=== PATIENT | male | born 1955 | race Caucasian/White ===

== ENCOUNTER 2020-09-28 11:32 | Inpatient (IN) | payer MEDICARE, OTHER ==
[~2020-09-28] VITALS: Ht 177.8 cm; Wt 114.8 kg
--- NOTE | 2020-09-28 11:50 | NUR ---
ROSALES FROM HOME, EXPOSED TO FAMILY + COVID, C/O FEELING SICK X3 DAYS. iv access started. blood draw done sent to lab.
--- NOTE | 2020-09-28 11:51 | NUR ---
placed pt on non rebreather mask 10l, pt sating at 94%. made aware.
[2020-09-28] MEDS ORDERED: CEFTRIAXONE 1GM BAG (ER ONLY) 50 ML IV ONE ×2 (12:28→12:30)
[2020-09-28] MEDS ORDERED: DEXAMETHASONE SOD PHOSPHATE 10 MG/ML VIAL ONE (12:28)
[2020-09-28] MEDS ORDERED: DEXAMETHASONE SOD PHOSPHATE 10 MG/ML VIAL IV ONE (12:30)
[2020-09-28] MEDS ORDERED: AZITHROMYCIN 500 MG in IV D5W 250 ML IV ONE (12:30)
[2020-09-28] MEDS ORDERED: IV NS 0.9% 500 ML BAG IV ONE (12:30)
[2020-09-28 12:43] LABS: BASOPHILS % (AUTO) 0.4 % (0.0-2.0); EOSINOPHILS % (AUTO) 0.5 % (0.0-6.0); HEMATOCRIT 41 % (39-51); HEMOGLOBIN 13.3 g/dL (13.5-17.5); LYMPHOCYTES # (AUTO) 0.5 /CMM (0.8-4.8); LYMPHOCYTES % (AUTO) 16.4 % (20.0-44.0); MEAN CORPUSCULAR HGB CONC 33 g/dl (31.0-36.0); MEAN CORPUSCULAR VOLUME 88 fL (80-96); MONOCYTES # (AUTO) 0.4 /CMM (0.1-1.30); MONOCYTES % (AUTO) 13.1 % (2.0-12.0); NEUTROPHILS # (AUTO) 2.1 /CMM (1.8-8.9); NEUTROPHILS % (AUTO) 69.6 % (43.0-81.0); PLATELET COUNT (AUTO) 157 /CMM (150-450); RED BLOOD CELL COUNT(AUTO) 4.64 MIL/uL (4.5-6.0)
[2020-09-28] MEDS ORDERED: METF-442 PO (12:48)
[2020-09-28] MEDS ORDERED: CARV12.52 PO (12:48)
[2020-09-28] MEDS ORDERED: LOSA50TA39 PO (12:48)
[2020-09-28] MEDS ORDERED: ASPI-869 PO (12:48)
[2020-09-28] MEDS ORDERED: CLOP75TA15 PO (12:48)
[2020-09-28] MEDS ORDERED: DAPA5TAB PO (12:48)
[2020-09-28] MEDS ORDERED: QUET25TA PO (12:48)
[2020-09-28] MEDS ORDERED: EZET10TA32 PO (12:48)
[2020-09-28] MEDS ORDERED: GABA-532 PO (12:48)
[2020-09-28] MEDS ORDERED: PANT40TA49 PO (12:48)
[2020-09-28] MEDS ORDERED: FURO40TA5 PO (12:48)
[2020-09-28] MEDS ORDERED: QUIN40TA14 PO (12:48)
--- NOTE | 2020-09-28 12:54 | NUR ---
covid swab done sent to lab
[2020-09-28 12:55] LABS: CALCIUM, SERUM 8.8 mg/dL (8.5-10.1); CARBON DIOXIDE 30 mmol/L (21-32); CHLORIDE 102 mmol/L (98-107); CREATININE 1.1 mg/dL (0.6-1.3); GLUCOSE 200 mg/dL (74-106); POTASSIUM 4.4 mmol/L (3.5-5.1); SODIUM SERUM 140 mmol/L (136-145); UREA NITROGEN, BLOOD 25 mg/dL (7-18)
--- NOTE | 2020-09-28 13:02 | NUR ---
xray by bedside
[2020-09-28 13:11] LABS: ALANINE AMINOTRANSFERASE 17 U/L (12-78); ALBUMIN 3.2 g/dL (3.4-5.0); ALKALINE PHOSPHATASE 79 U/L (46-116); ASPARTATE AMINOTRANSFERASE 30 U/L (15-37); B-TYPE NATRIURETIC PEPTIDE 320 PG/ML (0-125); BILIRUBIN,DIRECT 0.4 mg/dL (0.0-0.2); BILIRUBIN,TOTAL 1.1 mg/dL (0.2-1.0); TOTAL PROTEIN, SERUM 7.7 g/dL (6.4-8.2)
[2020-09-28 13:22] LABS: D-DIMER 0.73 mg/L(FEU (0.17-0.50)
--- NOTE | 2020-09-28 14:21 | NUR ---
urine collected sent to lab
--- NOTE | 2020-09-28 14:35 | NUR ---
COVID POSITIVE PER LAB
[2020-09-28 14:36] LABS: BILIRUBIN,URINE SMALL (NEGATIVE); BLOOD, URINE Negative Ery/uL (NEGATIVE); COLOR,URINE YELLOW (YELLOW); LEUKOCYTE ESTERASE ,URINE Negative (NEGATIVE); NITRITE, URINE Negative (NEGATIVE); PH,URINE 5.5 (5.0-8.0); PROTEIN,URINE 100 mg/dl (NEGATIVE); UGLUCOSE Negative (NEGATIVE)
[2020-09-28 14:37] LABS: RBC,URINE 0-2 /HPF (0-2); WBC,URINE 0-2 /HPF (0-3)
[2020-09-28 14:38] LABS: BACTERIA,URINE Few /HPF (None Seen); HYALINE CASTS, URINE Rare /LPF (None Seen); SQUAMOUS EPITHELIAL CELL,UR Rare /HPF (None Seen)
--- NOTE | 2020-09-28 14:47 | NUR ---
covid pcr and influenza swab done sent to lab
--- NOTE | 2020-09-28 14:49 | NUR ---
called vineyard supervisor for bed assiggment
[2020-09-28 15:14] LABS: C-REACTIVE PROTEIN 13.6 mg/dL (0.0-0.9)
--- NOTE | 2020-09-28 21:08 | NUR ---
REPORT GIVEN TO NEGRO LECHUGA FOR CORAL.
--- NOTE | 2020-09-28 21:35 | NUR ---
RN OPENING NOTES RECEIVED PT VIA GIBRAN FROM ER. ISOLATION PRECAUTIONS IN PLACE FOR RAPID COVID POSITIVE RESULT. PT IS CURRENTLY A/O X4. SAMI/MOSOTHO SPEAKING, UNDERSTANDS CHINESE. ABLE TO MAKE NEEDS KNOWN. PT IS ON 10L OF O2 VIA SIMPLE MASK SATURATING WELL AT 95%. PT IS NOT EXPERIENCING SOB OR RESP DISTRESS AT THIS TIME. TELE MONITORING IN PLACE. BREATHING IS EVEN. PT SHOWS NSR HEART RATE OF 83. IV SITE RIGHT AC #18 SL, FLUSHED. PT DENIES PAIN. PT HAS BLISTERS WITH AT HOME BANDAGES ON BILATERAL LEGS. PT BELONGINGS AT BEDSIDE. SAFETY MEASURES IN PLACE. HOB ELEVATED. ID BAND ON. SIDE RAILS UP X2. BED LOCKED IN LOWEST POSITION WITH BED ALARM ON. CALL LIGHT WITHIN REACH WILL CONTINUE TO MONITOR.
--- NOTE | 2020-09-28 21:38 | NUR ---
TAKEN UP TO ASSIGNED ROOM FOR CORAL.
[2020-09-28] MEDS ORDERED: ONDANSETRON HCL/PF 4 MG/2 ML VIAL IVP PRN (22:00)
[2020-09-28] MEDS ORDERED: DEXTROSE 50%-WATER 50 ML DISP.SYRIN IV PRN (22:00)
[2020-09-28] MEDS ORDERED: ACETAMINOPHEN 325 MG TABLET PO PRN (22:00)
[2020-09-28] MEDS ORDERED: Z GUARD REMEDY 2 OZ OINT TP PRN (22:00)
[2020-09-28] MEDS: ENOXAPARIN SODIUM 40 MG/0.4 ML DISP.SYRIN SQ SCH (23:36)
[2020-09-28] MEDS: BLOOD SUGAR DIAGNOSTIC 1 EACH STRIP IN SCH (23:37)
[2020-09-28 23:46] VITALS: BP 133/73
[2020-09-29] VITALS: BP 136/75
[2020-09-29] MEDS: INSULIN REGULAR, HUMAN 100 UNIT/ML 3 ML VIAL SQ PRN ×5 (00:14→21:27)
[2020-09-29 04:00] VITALS: BP 151/77
[2020-09-29 05:36] LABS: BASOPHILS % (AUTO) 0.1 % (0.0-2.0); HEMATOCRIT 40 % (39-51); HEMOGLOBIN 13.1 g/dL (13.5-17.5); LYMPHOCYTES # (AUTO) 0.3 /CMM (0.8-4.8); LYMPHOCYTES % (AUTO) 9.7 % (20.0-44.0); MEAN CORPUSCULAR HGB CONC 33 g/dl (31.0-36.0); MEAN CORPUSCULAR VOLUME 87 fL (80-96); MONOCYTES # (AUTO) 0.4 /CMM (0.1-1.30); MONOCYTES % (AUTO) 13.4 % (2.0-12.0); NEUTROPHILS # (AUTO) 2.2 /CMM (1.8-8.9); NEUTROPHILS % (AUTO) 76.8 % (43.0-81.0); PLATELET COUNT (AUTO) 159 /CMM (150-450); RED BLOOD CELL COUNT(AUTO) 4.56 MIL/uL (4.5-6.0); WHITE BLOOD COUNT (AUTO) 2.9 K/uL (4.3-11.0)
[2020-09-29 06:16] LABS: ALBUMIN 2.8 g/dL (3.4-5.0); BILIRUBIN,TOTAL 0.9 mg/dL (0.2-1.0); CALCIUM, SERUM 8.4 mg/dL (8.5-10.1); CREATININE 0.8 mg/dL (0.6-1.3); MAGNESIUM 1.8 mg/dL (1.8-2.4); PHOSPHORUS 3.3 mg/dL (2.5-4.9); POTASSIUM 4.7 mmol/L (3.5-5.1); TOTAL PROTEIN, SERUM 7.1 g/dL (6.4-8.2)
[2020-09-29 06:25] LABS: THYROID STIMULATING HORMONE 0.285 uIU/mL (0.358-3.74)
--- NOTE | 2020-09-29 07:15 | NUR ---
RN CLOSING NOTES PATIENT REMAINS IN BED. ON O2 VIA SIMPLE MASK AT 10 LPM. NO RESPIRATORY DISTRESS NOTED,KEPT HOB ELEVATED. DENIES ANY SOB DENIES PAIN.TELE MONITOR SHOWS SINUS RHYTHM HR 70S. RIGHT AC IV PATENT AND INTACT, NO SIGNS OF INFILTRATION. ALL NEEDS ATTENDED. ALL SAFETY MEASURES IMPLEMENTED PER PROTOCOL, BED LOCKED IN LOWEST POSITION SIDE RAILS UP X 2. CALL LIGHT WITHIN REACH . WILL ENDORSE TO AM SHIFT NURSE FOR CORAL
[2020-09-29 08:00] VITALS: BP 140/82
[2020-09-29] MEDS: BLOOD SUGAR DIAGNOSTIC 1 EACH STRIP IN SCH ×4 (08:07→21:13)
[2020-09-29] MEDS ORDERED: QUINAPRIL HCL 10 MG TABLET PO SCH (09:00)
[2020-09-29] MEDS: QUETIAPINE FUMARATE 25 MG TABLET PO SCH ×2 (09:03→16:50)
[2020-09-29] MEDS: EZETIMIBE 10 MG TABLET PO SCH (09:03)
[2020-09-29] MEDS: ASPIRIN EC 325 MG TABLET.DR PO SCH (09:03)
[2020-09-29] MEDS: CARVEDILOL 12.5 MG TABLET PO SCH ×2 (09:03→16:50)
[2020-09-29] MEDS: PANTOPRAZOLE 40 MG TABLET.DR PO SCH (09:04)
[2020-09-29] MEDS: CLOPIDOGREL BISULFATE 75 MG TABLET PO SCH (09:04)
[2020-09-29] MEDS: GABAPENTIN 100 MG CAPSULE PO SCH (09:04)
[2020-09-29] MEDS: FUROSEMIDE 40 MG TABLET PO SCH (09:04)
[2020-09-29] MEDS: LOSARTAN POTASSIUM 50 MG TABLET PO SCH (09:04)
[2020-09-29] MEDS: ENOXAPARIN SODIUM 40 MG/0.4 ML DISP.SYRIN SQ SCH ×2 (09:05→21:14)
[2020-09-29 09:20] LABS: LYMPHOCYTES % (MANUAL) 24 % (16-48); MONOCYTES % (MANUAL) 6 % (0-11.0); NEUTROPHILS % (MANUAL) 70 (42-76)
[2020-09-29] MEDS: DEXAMETHASONE SOD PHOSPHATE 4 MG/ML VIAL IV SCH (09:25)
[2020-09-29] MEDS: LISINOPRIL (20MG) 20 MG TABLET PO SCH (09:36)
--- NOTE | 2020-09-29 10:15 | NUR ---
WOUND CARE CONSULT: REVIEWED CHART,NURSING DOCUMENTATION AND PHOTOS WHICH INDICATE LOWER LEG SCARRING/DISCOLORATION AND OPEN BLISTERS, PRESENT ON ADMISSION. RECOMMEND DPM CONSULT. DR VU NOTIFIED OF CONSULT REQUEST. RECOMMENDATIONS MADE FOR SKIN PROTECTION . DISCUSSED WITH NURSING STAFF. MD IN AGREEMENT WITH PLAN OF CARE.
--- NOTE | 2020-09-29 10:56 | NUR ---
tele sap basis administrator: dpm consult received wound tx order from dr. campos. orders acknowledged.
[2020-09-29 12:00] VITALS: BP 135/79
--- NOTE | 2020-09-29 12:00 | NUR ---
tele bone worker: md visit seen by dr. viera. lunch served. instructed to call for assistance. will continue to monitor.
[2020-09-29] MEDS: CEFTRIAXONE 1 G in IV D5W 50 ML IV SCH (13:19)
--- NOTE | 2020-09-29 14:00 | NUR ---
tele public health dietitian: notes resting quietly in bed. will continue to monitor.
[2020-09-29] MEDS: AZITHROMYCIN 500 MG in IV D5W 250 ML IV SCH (14:13)
[2020-09-29 16:00] VITALS: BP 138/81
--- NOTE | 2020-09-29 18:30 | NUR ---
tele pastry baker: notes in bed sounds asleep. no distress noted. call light within reach. will continue to monitor.
--- NOTE | 2020-09-29 19:05 | NUR ---
tele button cutting machine operator: notes report given to joie for continuity of care.
[2020-09-29 20:00] VITALS: BP 129/68
--- NOTE | 2020-09-29 21:06 | NUR ---
speaks [place]inean with some Ecuadorean, states his is next to his bedside also a patient admitted due to COVID-19 infection. Patient lives locally with spouse. Prior to admission, he was ambulatory and independent with adl's. Has no DME or homehealth reported. He plan to return home once discharge. Addendum: 09/29/20 at 2108 by BRITTNI COURTNEY RN Amended: Links added.
[2020-09-30] VITALS: BP 134/60
--- NOTE | 2020-09-30 02:42 | NUR ---
TELE-1/SEAT JOINER CHAINSTITCH PT REFUSING TO WEAR TELE MONITOR.
[2020-09-30 04:00] VITALS: BP 114/68
--- NOTE | 2020-09-30 07:30 | NUR ---
TELE/RN OPENING NOTE Patient resting in bed, A&O x 4, Malawian speaking. No complaints of pain/discomfort at this time. Breathing even and non-labored on 10 L oxygen via mask, no respiratory distress noted. No cardiac distress noted, on tele monitor, reading SR 80s-90s. IV access noted on R AC #18g, patent and intact, and flushing well. Sensation from all peripheral extremities intact. Bed locked to its lowest position, side rails x 2 up, call light in hand. Will continue with current medical management.
[2020-09-30 08:00] VITALS: BP 143/72
[2020-09-30] MEDS ORDERED: LISINOPRIL (20MG) 20 MG TABLET PO SCH (09:00)
[2020-09-30] MEDS: POVIDONE-IODINE OINT 28.4 GM TUBE TP SCH (09:00)
--- NOTE | 2020-09-30 09:00 | NUR ---
TELE/RN NOTE Patient refused wound treatment, explained its risks and benefits.
[2020-09-30] MEDS: BLOOD SUGAR DIAGNOSTIC 1 EACH STRIP IN SCH ×4 (10:43→23:03)
[2020-09-30] MEDS: EZETIMIBE 10 MG TABLET PO SCH (10:44)
[2020-09-30] MEDS: CLOPIDOGREL BISULFATE 75 MG TABLET PO SCH (10:44)
[2020-09-30] MEDS: FUROSEMIDE 40 MG TABLET PO SCH (10:44)
[2020-09-30] MEDS: ASPIRIN EC 325 MG TABLET.DR PO SCH (10:44)
[2020-09-30] MEDS: GABAPENTIN 100 MG CAPSULE PO SCH (10:44)
[2020-09-30] MEDS: PANTOPRAZOLE 40 MG TABLET.DR PO SCH (10:45)
[2020-09-30] MEDS: QUETIAPINE FUMARATE 25 MG TABLET PO SCH ×2 (10:45→17:02)
[2020-09-30] MEDS: CARVEDILOL 12.5 MG TABLET PO SCH ×2 (10:45→17:03)
[2020-09-30] MEDS: LISINOPRIL (20MG) 20 MG TABLET PO SCH (10:46)
[2020-09-30] MEDS: INSULIN REGULAR, HUMAN 100 UNIT/ML 3 ML VIAL SQ PRN ×4 (10:51→23:04)
[2020-09-30] MEDS: ENOXAPARIN SODIUM 40 MG/0.4 ML DISP.SYRIN SQ SCH ×2 (10:51→22:45)
--- NOTE | 2020-09-30 10:52 | NUR ---
TELE/RN NOTE Non-administered regular insulin, patient refused and did not eat breakfast. BS 178
[2020-09-30] MEDS: LOSARTAN POTASSIUM 50 MG TABLET PO SCH (10:53)
[2020-09-30] MEDS: DEXAMETHASONE SOD PHOSPHATE 4 MG/ML VIAL IV SCH (11:31)
[2020-09-30 12:00] VITALS: BP 123/70
[2020-09-30] MEDS: CEFTRIAXONE 1 G in IV D5W 50 ML IV SCH (12:09)
[2020-09-30] MEDS: AZITHROMYCIN 500 MG in IV D5W 250 ML IV SCH (12:54)
[2020-09-30 16:00] VITALS: BP 123/79
[2020-09-30] MEDS ORDERED: REMDESIVIR (CHARGED) 200 MG, *LOADING DOSE 1 EA in IV NS 0.9% 210 ML IV ONE (18:30)
--- NOTE | 2020-09-30 19:00 | NUR ---
TELE/RN NOTE Called pharmacy to bring up patient's remdesivir. Per pharmacy, they will bring it up soon. Will endorse to wallpaperer nurse.
--- NOTE | 2020-09-30 19:30 | NUR ---
TELE/RN CLOSING NOTE Patient resting in bed, A&O x 4. All needs met and attended to. No complaints of pain/discomfort at this time. Breathing even and non-labored on 10 L oxygen via face mask, no respiratory distress noted. No cardiac distress noted, on tele monitor, reading SR 80s-90s. IV access noted on R AC #18, patent and intact, and flushing well. Sensation from all peripheral extremities intact. Fall precautions maintained. Will endorse to slot shift supervisor nurse.
--- NOTE | 2020-09-30 19:50 | NUR ---
ERP ANALYST OPENING NOTES PATIENT AWAKE AND SITTING UP IN BED. A/OX4. PRIMARY LANGUAGE GREENLANDIC. ON 10L MASK; NO S/S OF ACUTE RESPIRATORY DISTRESS; BREATHING IS EVEN AND UNLABORED. NO S/S OF PAIN NOTED. LEFT ARM WEAKNESS NOTED R/T PAST CVA. TELE MONITOR READING NSR, HEART RATE 81. IV PRESENT ON RIGHT AC, SIZE 18, INTACT & PATENT, HEP LOCKED. CONTACT/DROPLET PRECAUTIONS IN PLACE FOR POSITIVE COVID 19. SAFETY MEASURES IN PLACE AND PATIENT'S NEEDS MET. BED LOCKED, SIDE RAILS X2, CALL LIGHT WITHIN REACH. WILL CONTINUE TO MONITOR.
[2020-09-30 20:00] VITALS: BP_SYST 109; BP_SYST 142; BP_DIAS 60; BP_DIAS 67
--- NOTE | 2020-09-30 20:41 | NUR ---
STITCHER TAPE CONTROLLED MACHINE NOTE IV REMDESIVIR DELIVERED BY PHARMACY PAST SCHEDULED ADMINISTRATION TIME 1830. ADMINISTERED PAST SCHEDULED TIME.
[2020-10-01] VITALS: BP 143/50
[2020-10-01 04:00] VITALS: BP 144/42
[2020-10-01] MEDS: BLOOD SUGAR DIAGNOSTIC 1 EACH STRIP IN SCH ×4 (07:03→22:34)
[2020-10-01] MEDS: INSULIN REGULAR, HUMAN 100 UNIT/ML 3 ML VIAL SQ PRN ×5 (07:03→22:37)
--- NOTE | 2020-10-01 07:40 | NUR ---
SALES REP CLOSING NOTES PATIENT AWAKE IN BED. A/OX4. ON 10L MASK; NO S/S OF ACUTE RESPIRATORY DISTRESS; BREATHING IS EVEN AND UNLABORED. NO S/S OF PAIN NOTED. TELE MONITOR READING NSR. IV ON RIGHT AC, SIZE 18, INTACT & PATENT, HEP LOCKED. SAFETY MEASURES IN PLACE AND PATIENT'S NEEDS MET. BED LOCKED, SIDE RAILS X2, CALL LIGHT WITHIN REACH. ENDORSED TO DAY SHIFT RN PLAN OF CARE.
[2020-10-01 08:11] LABS: BASOPHILS % (AUTO) 0.1 % (0.0-2.0); HEMATOCRIT 42 % (39-51); LYMPHOCYTES # (AUTO) 0.5 /CMM (0.8-4.8); LYMPHOCYTES % (AUTO) 10.3 % (20.0-44.0); MEAN CORPUSCULAR HGB CONC 34 g/dl (31.0-36.0); MEAN CORPUSCULAR VOLUME 89 fL (80-96); MONOCYTES # (AUTO) 0.6 /CMM (0.1-1.30); MONOCYTES % (AUTO) 11.7 % (2.0-12.0); NEUTROPHILS % (AUTO) 77.9 % (43.0-81.0); PLATELET COUNT (AUTO) 236 /CMM (150-450); RED BLOOD CELL COUNT(AUTO) 4.71 MIL/uL (4.5-6.0); WHITE BLOOD COUNT (AUTO) 5.1 K/uL (4.3-11.0)
[2020-10-01] MEDS: DEXAMETHASONE SOD PHOSPHATE 4 MG/ML VIAL IV SCH (09:01)
[2020-10-01] MEDS: ENOXAPARIN SODIUM 40 MG/0.4 ML DISP.SYRIN SQ SCH ×2 (09:02→22:37)
[2020-10-01] MEDS: FUROSEMIDE 40 MG TABLET PO SCH (09:02)
[2020-10-01] MEDS: LOSARTAN POTASSIUM 50 MG TABLET PO SCH (09:02)
[2020-10-01 09:03] LABS: BILIRUBIN,DIRECT 0.2 mg/dL (0.0-0.2); BILIRUBIN,TOTAL 0.8 mg/dL (0.2-1.0); CREATININE 1.1 mg/dL (0.6-1.3); PHOSPHORUS 3.4 mg/dL (2.5-4.9); POTASSIUM 4.8 mmol/L (3.5-5.1); TOTAL PROTEIN, SERUM 7.6 g/dL (6.4-8.2)
[2020-10-01] MEDS: ASPIRIN EC 325 MG TABLET.DR PO SCH (09:03)
[2020-10-01] MEDS: CARVEDILOL 12.5 MG TABLET PO SCH ×2 (09:03→17:07)
[2020-10-01] MEDS: PANTOPRAZOLE 40 MG TABLET.DR PO SCH (09:03)
[2020-10-01] MEDS: QUETIAPINE FUMARATE 25 MG TABLET PO SCH ×2 (09:03→17:07)
[2020-10-01] MEDS: POVIDONE-IODINE OINT 28.4 GM TUBE TP SCH (09:03)
[2020-10-01] MEDS: LISINOPRIL (20MG) 20 MG TABLET PO SCH (09:03)
[2020-10-01] MEDS: CLOPIDOGREL BISULFATE 75 MG TABLET PO SCH (09:03)
[2020-10-01] MEDS: GABAPENTIN 100 MG CAPSULE PO SCH (09:03)
[2020-10-01] MEDS: EZETIMIBE 10 MG TABLET PO SCH (09:03)
--- NOTE | 2020-10-01 10:30 | NUR ---
MASK DESIGN ENGINEER NOTES PER DR. FERNANDEZ, CHECK O2 SAT AT RA - PT SATING 75-84%, NOT IN DISTRESS. IMKE NELSON. PLACED PT ON 10 LPM MASK WITH O2 SAT OF 92%.
[2020-10-01 10:48] VITALS: BP 137/97
[2020-10-01] MEDS: CEFTRIAXONE 1 G in IV D5W 50 ML IV SCH (11:51)
[2020-10-01] MEDS: AZITHROMYCIN 500 MG in IV D5W 250 ML IV SCH (12:47)
[2020-10-01 13:17] VITALS: BP 96/63
--- NOTE | 2020-10-01 13:41 | NUR ---
MANAGER UTILIZATION MANAGEMENT OPENING NOTES RECEIVED PT ON BED, AAOX3, ON O2 AT 10LPM VIA MASK, SATING 92% . NO PRESENCE OF ACUTE RESPIRATORY DISTRESS. ABD SOFT AND NON DISTENDED. DENIES PAIN AND DISCOMFORT. SKIN WARM TO TOUCH AND DRY. ON ISOLATION FOR + COVID19, PPE UTILIZED PER PROTOCOL. IV AT RIGHT AC #18 H/L PATENT IN FLUSHING, NO S/SX OF INFILTRATION. TELE MONITOR SHOWS NSR 75. CONT TO MONITOR CARE.
[2020-10-01 16:55] VITALS: BP 129/73
[2020-10-01] MEDS: REMDESIVIR (CHARGED) 100 MG in IV NS 0.9% 230 ML IV SCH (18:16)
--- NOTE | 2020-10-01 19:34 | NUR ---
FINANCE DIRECTOR CLOSING NOTES PT AAOX4, RESPONSIVE TO ALL STIMULI. TOLERATING O2 AT 10 LPM VIA MASK SATING >92%, NO PRESENCE OF ACUTE RESPIRATORY DISTRESS. NO CRITICAL CHANGE OF CONDITION. TELE MONITOR SHOWS NSR. PT COVID-19 POSITIVE, PPE UTILIZED PER HOSPITAL PROTOCOL. ALL CONCERNS ATTENDED. BED IN LOW LOCKED, SRX2 UP FOR SAFETY, CALL LIGHT WITHIN REACHED. ENDORSED CARE TO NEXT SHIFT.
[2020-10-01 20:00] VITALS: BP 138/97
[2020-10-02] VITALS: BP 147/70
[2020-10-02 04:00] VITALS: BP 142/86
[2020-10-02 07:30] LABS: BASOPHILS # (AUTO) 0.1 /CMM (0.0-0.2); BASOPHILS % (AUTO) 1.1 % (0.0-2.0); EOSINOPHILS % (AUTO) 0.6 % (0.0-6.0); HEMATOCRIT 42 % (39-51); HEMOGLOBIN 14.3 g/dL (13.5-17.5); LYMPHOCYTES # (AUTO) 0.6 /CMM (0.8-4.8); LYMPHOCYTES % (AUTO) 12.9 % (20.0-44.0); MEAN CORPUSCULAR HGB CONC 34 g/dl (31.0-36.0); MEAN CORPUSCULAR VOLUME 88 fL (80-96); MONOCYTES # (AUTO) 0.5 /CMM (0.1-1.30); MONOCYTES % (AUTO) 9.4 % (2.0-12.0); NEUTROPHILS # (AUTO) 3.7 /CMM (1.8-8.9); PLATELET COUNT (AUTO) 243 /CMM (150-450); RED BLOOD CELL COUNT(AUTO) 4.81 MIL/uL (4.5-6.0); WHITE BLOOD COUNT (AUTO) 4.9 K/uL (4.3-11.0)
--- NOTE | 2020-10-02 07:30 | NUR ---
RN OPENING NOTE PT SITTING UP IN BED RESTING COMFORTABLY. PT A/OX4, BREATHING UNLABORED AND EVEN, NO SOB OR RESP DISTRESS NOTED ON NC 6LPM. PT HAS NON PITTING BLE EDEMA. PT HAS RT ACC #18 FLUSHED, PATENT, INTACT AND SL WITH NO SIGNS OF INFECTION OR INFILTRATION. PT DENIES PAIN AT THIS TIME. ALL SAFETY PRECAUTIONS IN PLACE, WILL CONTINUE TO MONITOR
--- NOTE | 2020-10-02 07:30 | NUR ---
RN NOTE PT STAYED STABLE DURING MY SHIFT,REPORT GIVEN TO INCOMING SHIFT FOR CORAL.
[2020-10-02 07:53] LABS: ALBUMIN 2.9 g/dL (3.4-5.0); BILIRUBIN,DIRECT 0.2 mg/dL (0.0-0.2); BILIRUBIN,TOTAL 0.7 mg/dL (0.2-1.0); CALCIUM, SERUM 8.8 mg/dL (8.5-10.1); POTASSIUM 3.8 mmol/L (3.5-5.1); TOTAL PROTEIN, SERUM 7.4 g/dL (6.4-8.2)
[2020-10-02 08:00] VITALS: BP 120/69
[2020-10-02] MEDS: LISINOPRIL (20MG) 20 MG TABLET PO SCH (09:00)
[2020-10-02] MEDS: POVIDONE-IODINE OINT 28.4 GM TUBE TP SCH (09:00)
--- NOTE | 2020-10-02 09:30 | NUR ---
RN NOTE HELD LISINOPRIL. GAVE OTHER BP MEDS TO PT
[2020-10-02] MEDS: BLOOD SUGAR DIAGNOSTIC 1 EACH STRIP IN SCH ×5 (10:40→22:41)
[2020-10-02] MEDS: FUROSEMIDE 40 MG TABLET PO SCH (10:41)
[2020-10-02] MEDS: DEXAMETHASONE SOD PHOSPHATE 4 MG/ML VIAL IV SCH (10:41)
[2020-10-02] MEDS: GABAPENTIN 100 MG CAPSULE PO SCH (10:42)
[2020-10-02] MEDS: ASPIRIN EC 325 MG TABLET.DR PO SCH (10:43)
[2020-10-02] MEDS: ENOXAPARIN SODIUM 40 MG/0.4 ML DISP.SYRIN SQ SCH ×2 (10:46→22:47)
[2020-10-02] MEDS: CLOPIDOGREL BISULFATE 75 MG TABLET PO SCH (10:47)
[2020-10-02] MEDS: LOSARTAN POTASSIUM 50 MG TABLET PO SCH (10:47)
[2020-10-02] MEDS: QUETIAPINE FUMARATE 25 MG TABLET PO SCH ×2 (10:47→16:35)
[2020-10-02] MEDS: PANTOPRAZOLE 40 MG TABLET.DR PO SCH (10:48)
[2020-10-02] MEDS: CARVEDILOL 12.5 MG TABLET PO SCH ×2 (10:51→16:35)
[2020-10-02] MEDS: INSULIN REGULAR, HUMAN 100 UNIT/ML 3 ML VIAL SQ PRN ×4 (10:52→22:44)
[2020-10-02] MEDS: EZETIMIBE 10 MG TABLET PO SCH (10:58)
[2020-10-02 12:00] VITALS: BP 147/97
--- NOTE | 2020-10-02 13:00 | NUR ---
RN NOTE PT SPO2 OF 89%, CHANGED PT TO MASK 10LPM AND WILL REASSESS SPO2 SHORTLY. NO SIGN OF RESP DISTRESS OR SOB, BREATHING EVEN AND UNLABORED
--- NOTE | 2020-10-02 13:30 | NUR ---
RN NOTE PT SPO2 UP TO 92%
[2020-10-02] MEDS: AZITHROMYCIN 500 MG in IV D5W 250 ML IV SCH (13:37)
[2020-10-02] MEDS: CEFTRIAXONE 1 G in IV D5W 50 ML IV SCH (15:52)
[2020-10-02 16:00] VITALS: BP 101/77
--- NOTE | 2020-10-02 19:00 | NUR ---
RN CLOSING NOTE PT IN STABLE CONDITION. NO CHANGES DURING SHIFT. NO SIGNS OF RESP DISTRESS OR SOB, BREATHING EVEN AND UNLABORED. ALL PT SAFETY PRECAUTIONS IN PLACE. WILL ENDORSE CORAL TO ONCOMING NURSE
[2020-10-02 20:00] VITALS: BP 139/81
[2020-10-02] MEDS: REMDESIVIR (CHARGED) 100 MG in IV NS 0.9% 230 ML IV SCH (20:32)
[2020-10-03] VITALS: BP 153/51
[2020-10-03 04:00] VITALS: BP 107/52
--- NOTE | 2020-10-03 06:21 | NUR ---
ALERT AND ORIENTATED X4 BAHRAINI SPEAKING BUT WITH SOME AFGHAN UNDERSTANDINGOT SEEN OOB BUT WILL SIT ON THE EDGE OF THE BED GOOD BALANCE O2 AT 6 LITERS N/C SATS 95%
--- NOTE | 2020-10-03 07:30 | NUR ---
PT RECEIVED IN BED, A/OX4 ON 6L FACE MASK OW SAT 93%. NO RESPIRATORY DISTRESS OR SOB. PT SR ON MONITOR. PT IS BEDREST, BUT ABLE TO SIT ON EDGE OF BED INDEPENDENTLY. PT ON CONSISTENT CARB DIET. PT RIGHT AC 18G SL. PT IN BED LOCKED LOWEST POSITION, CALL LIGHT WITHIN REACH, ALL SAFETY MEASURES IN PLACE. WILL CONTINUE TO MONITOR CLOSELY
[2020-10-03 07:57] LABS: BASOPHILS % (AUTO) 0.1 % (0.0-2.0); EOSINOPHILS % (AUTO) 0.5 % (0.0-6.0); HEMATOCRIT 44 % (39-51); HEMOGLOBIN 14.5 g/dL (13.5-17.5); LYMPHOCYTES # (AUTO) 0.6 /CMM (0.8-4.8); LYMPHOCYTES % (AUTO) 10.7 % (20.0-44.0); MEAN CORPUSCULAR HGB CONC 33 g/dl (31.0-36.0); MEAN CORPUSCULAR VOLUME 89 fL (80-96); MONOCYTES # (AUTO) 0.4 /CMM (0.1-1.30); MONOCYTES % (AUTO) 7.6 % (2.0-12.0); NEUTROPHILS # (AUTO) 4.7 /CMM (1.8-8.9); NEUTROPHILS % (AUTO) 81.1 % (43.0-81.0); PLATELET COUNT (AUTO) 266 /CMM (150-450); RED BLOOD CELL COUNT(AUTO) 4.89 MIL/uL (4.5-6.0); WHITE BLOOD COUNT (AUTO) 5.8 K/uL (4.3-11.0)
[2020-10-03 08:20] LABS: ALBUMIN 2.8 g/dL (3.4-5.0); BILIRUBIN,DIRECT 0.2 mg/dL (0.0-0.2); BILIRUBIN,TOTAL 0.6 mg/dL (0.2-1.0); CALCIUM, SERUM 9.1 mg/dL (8.5-10.1); POTASSIUM 3.6 mmol/L (3.5-5.1); TOTAL PROTEIN, SERUM 7.3 g/dL (6.4-8.2)
[2020-10-03] MEDS: EZETIMIBE 10 MG TABLET PO SCH (09:52)
[2020-10-03] MEDS: PANTOPRAZOLE 40 MG TABLET.DR PO SCH (09:52)
[2020-10-03] MEDS: AZITHROMYCIN 250 MG TABLET PO SCH (09:52)
[2020-10-03] MEDS: QUETIAPINE FUMARATE 25 MG TABLET PO SCH ×2 (09:53→18:02)
[2020-10-03] MEDS: ASPIRIN EC 325 MG TABLET.DR PO SCH (09:53)
[2020-10-03] MEDS: FUROSEMIDE 40 MG TABLET PO SCH (09:53)
[2020-10-03] MEDS: DEXAMETHASONE SOD PHOSPHATE 4 MG/ML VIAL IV SCH (09:53)
[2020-10-03] MEDS: CLOPIDOGREL BISULFATE 75 MG TABLET PO SCH (09:53)
[2020-10-03] MEDS: GABAPENTIN 100 MG CAPSULE PO SCH (09:54)
[2020-10-03] MEDS: LOSARTAN POTASSIUM 50 MG TABLET PO SCH (09:54)
[2020-10-03] MEDS: CARVEDILOL 12.5 MG TABLET PO SCH ×2 (09:55→18:02)
[2020-10-03] MEDS: LISINOPRIL (20MG) 20 MG TABLET PO SCH (09:57)
[2020-10-03 12:00] VITALS: BP 156/81
[2020-10-03] MEDS: POVIDONE-IODINE OINT 28.4 GM TUBE TP SCH (12:40)
[2020-10-03] MEDS: CEFTRIAXONE 1 G in IV D5W 50 ML IV SCH (12:55)
[2020-10-03] MEDS: BLOOD SUGAR DIAGNOSTIC 1 EACH STRIP IN SCH ×3 (12:56→21:24)
[2020-10-03] MEDS: ENOXAPARIN SODIUM 40 MG/0.4 ML DISP.SYRIN SQ SCH ×2 (12:57→21:25)
[2020-10-03] MEDS ORDERED: CLONIDINE HCL 0.1 MG TABLET PO PRN (13:00)
[2020-10-03] MEDS: INSULIN REGULAR, HUMAN 100 UNIT/ML 3 ML VIAL SQ PRN ×3 (13:36→21:42)
[2020-10-03 16:00] VITALS: BP 105/56
[2020-10-03] MEDS: REMDESIVIR (CHARGED) 100 MG in IV NS 0.9% 230 ML IV SCH (18:25)
--- NOTE | 2020-10-03 19:00 | NUR ---
CONSENT FOR CONVALESCENT PLASMA OBTAINED, PLACED IN CHART
--- NOTE | 2020-10-03 19:30 | NUR ---
PT REMAINS IN BED, ALERT AND ORIENTED X 4, ON SIMPLE MASK 6L O2 SATURATION 93-97%. NO RESPIRATORY DISTRESS. PT RAC 18 RUNNING REMDESEVIR. NO SIGNS OF INFILTRATION OR INFECTION. PT REFUSE TO EAT ALL MEALS TODAY, STATES HE DOES NOT LIKE THE FOOD AT THE HOSPITAL. PT BS CHECKS TODAY SHOWED BLOOD SUGARS IN HIGH 200's. PT IN BED LOCKED LOWEST POSITION, CALL LIGHT WITHIN REACH, ALL SAFETY MEASURES IN PLACE. REPORT GIVEN TO SEBASTIEN FOR CORAL
[2020-10-03 20:00] VITALS: BP 153/94
[2020-10-04] VITALS (8 sets, daily range): BP systolic 107–156; BP diastolic 61–89
--- NOTE | 2020-10-04 05:03 | NUR ---
TELE-1/DATA SECURITY COORDINATOR CONVALESCENT PLASMA TRANSFUSION STARTED. WILL CONTINUE TO MONITOR.
--- NOTE | 2020-10-04 08:00 | NUR ---
stone setter apprentice notes Patient received in bed. He is alert and oreintedX 4. On 02 6 liters with 02 saturation of 94%. Patient did not c/o sob. No c/o pain or discomfort.Patient's bed in lowest position. Call light with in reach. Will continue to monitor.
[2020-10-04] MEDS: BLOOD SUGAR DIAGNOSTIC 1 EACH STRIP IN SCH ×4 (10:17→21:53)
[2020-10-04] MEDS: AZITHROMYCIN 250 MG TABLET PO SCH (10:24)
[2020-10-04] MEDS: PANTOPRAZOLE 40 MG TABLET.DR PO SCH (10:24)
[2020-10-04] MEDS: EZETIMIBE 10 MG TABLET PO SCH (10:24)
[2020-10-04] MEDS: ASPIRIN EC 325 MG TABLET.DR PO SCH (10:24)
[2020-10-04] MEDS: GABAPENTIN 100 MG CAPSULE PO SCH (10:24)
[2020-10-04] MEDS: FUROSEMIDE 40 MG TABLET PO SCH (10:25)
[2020-10-04] MEDS: LOSARTAN POTASSIUM 50 MG TABLET PO SCH (10:25)
[2020-10-04] MEDS: DEXAMETHASONE SOD PHOSPHATE 4 MG/ML VIAL IV SCH (10:26)
[2020-10-04] MEDS: CLOPIDOGREL BISULFATE 75 MG TABLET PO SCH (10:26)
[2020-10-04] MEDS: QUETIAPINE FUMARATE 25 MG TABLET PO SCH ×2 (10:30→18:20)
[2020-10-04] MEDS: LISINOPRIL (20MG) 20 MG TABLET PO SCH (10:31)
[2020-10-04] MEDS: CARVEDILOL 12.5 MG TABLET PO SCH ×2 (10:31→17:00)
[2020-10-04] MEDS: ENOXAPARIN SODIUM 40 MG/0.4 ML DISP.SYRIN SQ SCH ×2 (10:37→21:53)
[2020-10-04 12:11] LABS: BASOPHILS % (AUTO) 0.1 % (0.0-2.0); EOSINOPHILS % (AUTO) 0.9 % (0.0-6.0); HEMATOCRIT 46 % (39-51); LYMPHOCYTES # (AUTO) 0.7 /CMM (0.8-4.8); LYMPHOCYTES % (AUTO) 9.2 % (20.0-44.0); MEAN CORPUSCULAR HGB CONC 33 g/dl (31.0-36.0); MEAN CORPUSCULAR VOLUME 87 fL (80-96); MONOCYTES # (AUTO) 0.6 /CMM (0.1-1.30); MONOCYTES % (AUTO) 8.4 % (2.0-12.0); NEUTROPHILS # (AUTO) 5.9 /CMM (1.8-8.9); NEUTROPHILS % (AUTO) 81.4 % (43.0-81.0); PLATELET COUNT (AUTO) 321 /CMM (150-450); RED BLOOD CELL COUNT(AUTO) 5.25 MIL/uL (4.5-6.0); WHITE BLOOD COUNT (AUTO) 7.2 K/uL (4.3-11.0)
[2020-10-04] MEDS: INSULIN REGULAR, HUMAN 100 UNIT/ML 3 ML VIAL SQ PRN ×4 (12:24→21:55)
[2020-10-04] MEDS: CEFTRIAXONE 1 G in IV D5W 50 ML IV SCH (13:49)
[2020-10-04 14:03] LABS: ALBUMIN 3.2 g/dL (3.4-5.0); BILIRUBIN,DIRECT 0.2 mg/dL (0.0-0.2); BILIRUBIN,TOTAL 0.9 mg/dL (0.2-1.0); CALCIUM, SERUM 9.3 mg/dL (8.5-10.1); CREATININE 1.1 mg/dL (0.6-1.3); POTASSIUM 3.8 mmol/L (3.5-5.1); TOTAL PROTEIN, SERUM 8.1 g/dL (6.4-8.2)
[2020-10-04] MEDS: POVIDONE-IODINE OINT 28.4 GM TUBE TP SCH (18:37)
[2020-10-04] MEDS: REMDESIVIR (CHARGED) 100 MG in IV NS 0.9% 230 ML IV SCH (18:37)
--- NOTE | 2020-10-04 18:45 | NUR ---
Patient blood sugar checked at 433mg/dl and 10 units given per protocol. Dr Blair aware and received orders for 4 more units. Patient given 14 units total per md orders.
--- NOTE | 2020-10-04 19:00 | NUR ---
OUTSIDE SALES INSPECTOR NOTES Patient remains in bed. He is alert and oriented x 4 , Telugu speaking. Patient is on 6L simple mask with o2 saturation 92% and above. Attempted to titrate 02 to 4 liters n/c , patient unable to tolerate and noted with 02 sat in 80's. No sob and respiratory distress at this time. Patient is ambulatory with one person assist and has bilateral extremity blisters. Wound care done today. Patient does not eat hospital food and prefers food from home.Right ac 18 gauze, patent and intact. No s/s of infection and infiltration. bed in lowest locked position. Call light with in reach. Endorsed to oncoming RN for CORAL.
--- NOTE | 2020-10-04 19:35 | NUR ---
PROFESSOR OF COMMUNICATION AND WRITING NOTES RECEIVED SITTING ON EDGE OF BED,A/O X4,NO SOB,SR -93 ON TELE MONITOR.O2 6L/MASK IN USED ON AND OFF,NOTED LEFT SIDE ARM WEAKNESS,RESIDUAL FROM CVA.NOTED BLISTERS ON BOTH LOWER LEGS,DRESSING INTACT AND DRY.EDEMA NOTED WELL.ENCOURAGED TO ELEVATE LOWER EXTREMITIES ON PILLOWS WHILE LAYING ON BED.SALINE LOCK RIGHT AC INTACT AND PATENT.ISOLATION FOR COVID 19 POSITIVE.AMBULATES WITH ASSIST.CALL LIGHT IN REACH,NEEDS ANTICIPATED.
--- NOTE | 2020-10-04 22:00 | NUR ---
BIOMETRICS CONSULTANT NOTES ACCU-CHECK BLOOD SUGAR CHECK 357,COVERED WITH HUMULIN R 10 UNITS PER SLIDING SCALE.SNACKS AT BEDSIDE.
[2020-10-05] VITALS: BP 142/94
[2020-10-05 04:00] VITALS: BP 148/86
--- NOTE | 2020-10-05 06:42 | NUR ---
DESIGN CONSULTANT NOTES SLEPT WELL AT NIGHT.NO EPISODE OF SOB NOTED.AFEBRILE.WILL ENDORSE TO DAY NURSE FOR CORAL.
--- NOTE | 2020-10-05 07:02 | NUR ---
CERTIFIED DRUG COUNSELOR OPENING NOTES RECEIVED PT AWAKE IN BED AT THIS TIME. PT AOX4. PT ABLE TO VERBALIZE NEEDS.LUXEMBOURGER SPEAKING. NO SOB NOTED, NO S/S OF ANY ACUTE DISTRESS NOTED. NO C/O PAIN AT THIS TIME. RESPIRATIONS ARE EVEN AND UNLABORED. PT ON OXYGEN 6LPM VIA NC. IV ACCESS NOTED IN RAC G#18, INTACT, PATENT AND FLUSHING WELL. SAFETY PRECAUTION IN PLACE AND MAINTAINED AT ALL TIMES. BED IN LOWEST LOCKED POSITION, HOB ELEVATED, SIDE RAILS UP X 2, CALL LIGHT AND TABLE WITHIN REACH. WILL CONTINUE TO MONITOR
[2020-10-05 07:32] LABS: BASOPHILS % (AUTO) 0.3 % (0.0-2.0); EOSINOPHILS % (AUTO) 1.2 % (0.0-6.0); HEMATOCRIT 44 % (39-51); HEMOGLOBIN 14.4 g/dL (13.5-17.5); LYMPHOCYTES # (AUTO) 0.8 /CMM (0.8-4.8); LYMPHOCYTES % (AUTO) 11.3 % (20.0-44.0); MEAN CORPUSCULAR HGB CONC 33 g/dl (31.0-36.0); MEAN CORPUSCULAR VOLUME 86 fL (80-96); MONOCYTES # (AUTO) 0.5 /CMM (0.1-1.30); MONOCYTES % (AUTO) 7.3 % (2.0-12.0); NEUTROPHILS # (AUTO) 5.5 /CMM (1.8-8.9); NEUTROPHILS % (AUTO) 79.9 % (43.0-81.0); PLATELET COUNT (AUTO) 301 /CMM (150-450); RED BLOOD CELL COUNT(AUTO) 5.09 MIL/uL (4.5-6.0); WHITE BLOOD COUNT (AUTO) 6.9 K/uL (4.3-11.0)
[2020-10-05 07:38] LABS: POTASSIUM 3.3 mmol/L (3.5-5.1)
[2020-10-05 08:00] VITALS: BP 146/68
[2020-10-05] MEDS ORDERED: POTASSIUM CHLORIDE 20 MEQ TAB.PRT.SR PO ONE (08:00)
[2020-10-05 08:05] LABS: CALCIUM, SERUM 8.9 mg/dL (8.5-10.1)
[2020-10-05] MEDS: BLOOD SUGAR DIAGNOSTIC 1 EACH STRIP IN SCH ×4 (08:42→23:18)
[2020-10-05] MEDS: INSULIN REGULAR, HUMAN 100 UNIT/ML 3 ML VIAL SQ PRN ×4 (08:44→23:22)
[2020-10-05] MEDS: GABAPENTIN 100 MG CAPSULE PO SCH (08:45)
[2020-10-05] MEDS: DEXAMETHASONE SOD PHOSPHATE 4 MG/ML VIAL IV SCH (08:45)
[2020-10-05] MEDS: PANTOPRAZOLE 40 MG TABLET.DR PO SCH (08:46)
[2020-10-05] MEDS: AZITHROMYCIN 250 MG TABLET PO SCH (08:46)
[2020-10-05] MEDS: LISINOPRIL (20MG) 20 MG TABLET PO SCH (08:46)
[2020-10-05] MEDS: CARVEDILOL 12.5 MG TABLET PO SCH ×2 (08:46→17:36)
[2020-10-05] MEDS: ASPIRIN EC 325 MG TABLET.DR PO SCH (08:46)
[2020-10-05] MEDS: LOSARTAN POTASSIUM 50 MG TABLET PO SCH (08:47)
[2020-10-05] MEDS: FUROSEMIDE 40 MG TABLET PO SCH (08:47)
[2020-10-05] MEDS: CLOPIDOGREL BISULFATE 75 MG TABLET PO SCH (08:47)
[2020-10-05] MEDS: QUETIAPINE FUMARATE 25 MG TABLET PO SCH ×2 (08:47→17:36)
[2020-10-05] MEDS: EZETIMIBE 10 MG TABLET PO SCH (08:47)
[2020-10-05 09:07] LABS: ALBUMIN 2.8 g/dL (3.4-5.0); BILIRUBIN,DIRECT 0.2 mg/dL (0.0-0.2); BILIRUBIN,TOTAL 0.7 mg/dL (0.2-1.0); TOTAL PROTEIN, SERUM 7.2 g/dL (6.4-8.2)
[2020-10-05] MEDS: ENOXAPARIN SODIUM 40 MG/0.4 ML DISP.SYRIN SQ SCH ×2 (09:22→23:23)
[2020-10-05] MEDS: POVIDONE-IODINE OINT 28.4 GM TUBE TP SCH (09:54)
[2020-10-05] MEDS ORDERED: POTASSIUM CHLORIDE 20 MEQ TAB.PRT.SR PO SCH (10:30)
[2020-10-05 12:00] VITALS: BP 135/83
[2020-10-05] MEDS: CEFTRIAXONE 1 G in IV D5W 50 ML IV SCH (12:59)
[2020-10-05 16:00] VITALS: BP 132/70
--- NOTE | 2020-10-05 19:30 | NUR ---
DIAMOND GRINDER CLOSING NOTES PT AWAKE IN BED AT THIS TIME. PT REMAINED STABLE THROUGHOUT SHIFT. ALL CARE, NEED, MEDICATIONS AND TREATMENT ADMINISTERED ANTICIPATED PER ORDER. PT KEPT CLEAN AND DRY. SAFETY PRECAUTION IN PLACE AND MAINTAINED AT ALL TIMES. BED IN LOWEST LOCKED POSITION, HOB ELEVATED, SIDE RAILS UP X 2, CALL LIGHT AND TABLE WITHIN REACH. WILL ENDORSE TO SVP NURSE FOR CORAL
[2020-10-05 20:00] VITALS: BP 101/61
--- NOTE | 2020-10-05 20:06 | NUR ---
DEPARTURE CLERK CLOSING NOTES PT AWAKE IN BED AT THIS TIME. PT REMAINED STABLE THROUGHOUT SHIFT. ALL CARE, NEED, MEDICATIONS AND TREATMENT ADMINISTERED ANTICIPATED PER ORDER. PT MOTIVATED TO SELF CARE. SAFETY PRECAUTION IN PLACE AND MAINTAINED AT ALL TIMES. BED IN LOWEST LOCKED POSITION, HOB ELEVATED, SIDE RAILS UP X 2, CALL LIGHT AND TABLE WITHIN REACH. WILL ENDORSE TO CLINICAL MEDICAL TRANSCRIPTIONIST NURSE FOR CORAL
[2020-10-06] VITALS (9 sets, daily range): BP systolic 101–123; BP diastolic 53–84
--- NOTE | 2020-10-06 00:15 | NUR ---
ANGELIKA/RN DURING INITIAL SHIFT ROUND, PATIENT WAS AWAKE, ALERT, ORIENTED, COMFORTABLE, NO C/O PAIN, NO DISTRESS NOTED, O2 6LPM, CALL LIGHT IN REACH.
--- NOTE | 2020-10-06 06:52 | NUR ---
ANGELIKA/RN PATIENT IS AWAKE, COMFORTABLE, NO C/O PAIN, NO DISTRESS NOTED, CALL LIGHT IN REACH, ALL NEEDS ATTENDED AT THIS TIME, WILL CONTINUE TO MONITOR.
--- NOTE | 2020-10-06 07:44 | NUR ---
DRUG ENFORCEMENT AGENT OPENING NOTES PATIENT AWAKE, A/O X4. ON OXYGEN THERAPY AT 6 LPM; SATURATING WELL AT THIS TIME. NO COMPLAINS OF PAIN. RAC IV ACCESS G #18 PRESENT AND INTACT. SAFETY PRECAUTIONS IN PLACE; BED IN LOW POSITION AND LOCKED, RAILS UP X2, CALL LIGHT WITHIN REACH. WILL CONTINUE TO MONITOR PATIENT.
[2020-10-06 07:55] LABS: BASOPHILS # (AUTO) 0.1 /CMM (0.0-0.2); EOSINOPHILS % (AUTO) 0.8 % (0.0-6.0); HEMATOCRIT 40 % (39-51); HEMOGLOBIN 13.1 g/dL (13.5-17.5); LYMPHOCYTES # (AUTO) 0.9 /CMM (0.8-4.8); LYMPHOCYTES % (AUTO) 10.8 % (20.0-44.0); MEAN CORPUSCULAR HGB CONC 33 g/dl (31.0-36.0); MEAN CORPUSCULAR VOLUME 89 fL (80-96); MONOCYTES # (AUTO) 0.9 /CMM (0.1-1.30); MONOCYTES % (AUTO) 9.7 % (2.0-12.0); NEUTROPHILS # (AUTO) 6.8 /CMM (1.8-8.9); NEUTROPHILS % (AUTO) 77.7 % (43.0-81.0); PLATELET COUNT (AUTO) 317 /CMM (150-450); RED BLOOD CELL COUNT(AUTO) 4.47 MIL/uL (4.5-6.0); WHITE BLOOD COUNT (AUTO) 8.8 K/uL (4.3-11.0)
[2020-10-06] MEDS: BLOOD SUGAR DIAGNOSTIC 1 EACH STRIP IN SCH ×4 (08:02→22:41)
[2020-10-06] MEDS: FUROSEMIDE 40 MG TABLET PO SCH (09:00)
[2020-10-06] MEDS: LOSARTAN POTASSIUM 50 MG TABLET PO SCH (09:00)
[2020-10-06] MEDS: CARVEDILOL 12.5 MG TABLET PO SCH ×2 (09:00→16:17)
[2020-10-06] MEDS: LISINOPRIL (20MG) 20 MG TABLET PO SCH (09:00)
[2020-10-06] MEDS: EZETIMIBE 10 MG TABLET PO SCH (09:11)
[2020-10-06] MEDS: AZITHROMYCIN 250 MG TABLET PO SCH (09:12)
[2020-10-06] MEDS: CLOPIDOGREL BISULFATE 75 MG TABLET PO SCH (09:12)
[2020-10-06] MEDS: PANTOPRAZOLE 40 MG TABLET.DR PO SCH (09:12)
[2020-10-06] MEDS: QUETIAPINE FUMARATE 25 MG TABLET PO SCH ×2 (09:12→16:44)
[2020-10-06] MEDS: DEXAMETHASONE SOD PHOSPHATE 4 MG/ML VIAL IV SCH (09:12)
[2020-10-06] MEDS: GABAPENTIN 100 MG CAPSULE PO SCH (09:12)
[2020-10-06] MEDS: POVIDONE-IODINE OINT 28.4 GM TUBE TP SCH (09:17)
[2020-10-06] MEDS: ENOXAPARIN SODIUM 40 MG/0.4 ML DISP.SYRIN SQ SCH ×2 (09:19→22:45)
[2020-10-06] MEDS: ASPIRIN EC 325 MG TABLET.DR PO SCH (09:57)
[2020-10-06] MEDS: CEFTRIAXONE 1 G in IV D5W 50 ML IV SCH (11:52)
--- NOTE | 2020-10-06 12:12 | NUR ---
CORK TILE FLOOR LAYER NOTES CALLED PHARMACY IN AM FOR INSULIN. STILL WAITING.
[2020-10-06 13:29] LABS: CALCIUM, SERUM 8.8 mg/dL (8.5-10.1); CREATININE 1.1 mg/dL (0.6-1.3); MAGNESIUM 1.9 mg/dL (1.8-2.4); PHOSPHORUS 3.3 mg/dL (2.5-4.9); POTASSIUM 4.2 mmol/L (3.5-5.1)
[2020-10-06] MEDS: INSULIN REGULAR, HUMAN 100 UNIT/ML 3 ML VIAL SQ PRN ×2 (17:23→22:44)
--- NOTE | 2020-10-06 17:54 | NUR ---
RIVET BUCKER NOTES 1700 ACCU-CHECK WITH BLOOD SUGAR OF 460 AFTER REPEAT TEST. PER PROTOCOL 10 UNITS OF INSULIN GIVEN AND MD CONTACTED.
--- NOTE | 2020-10-06 18:45 | NUR ---
WALLCOVERING TEXTURER CLOSING NOTES PATIENT AWAKE, A/O X4 AND RESTING. ON OXYGEN THERAPY AT 6 LPM; SATURATING WELL AT THIS TIME. TELE MONITOR WITH A READING OF SINUS RHYTHM 92 BPM. NO COMPLAINS OF PAIN DURING SHIFT. RAC IV ACCESS G #18 PRESENT AND INTACT. ALL NEEDS ATTENDED THROUGHOUT THE DAY.SAFETY PRECAUTIONS IN PLACE; BED IN LOW POSITION AND LOCKED, RAILS UP X2, CALL LIGHT WITHIN REACH. WILL ENDORSE TO CUSTOMER PROJECT MANAGER NURSE.
--- NOTE | 2020-10-06 20:18 | NUR ---
ANGELIKA/RN DURING INITIAL ASSESSMENT, PATIENT WAS SITTING AT EDGE OF BED AWAKE, ALERT, ORIENTED, COMFORTABLE, NO C/O PAIN, NO DISTRESS NOTED, CALL LIGHT IN REACH, WILL MONITOR.
[2020-10-07] VITALS: BP 146/89
[2020-10-07] MEDS ORDERED: DEXTROSE 50%-WATER 50 ML DISP.SYRIN IV PRN
[2020-10-07 04:00] VITALS: BP 121/75
--- NOTE | 2020-10-07 07:30 | NUR ---
ANGELIKA/RN PATIENT IS STILL SLEEPING AT THIS THIS TIME, APPEAR COMFORTABLE, NO SIGNS OF DISTRESS NOTED, CALL LIGHT IN REACH, ALL NEEDS ATTENDED AT THIS TIME, WILL CONTINUE TO MONITOR.
--- NOTE | 2020-10-07 07:37 | NUR ---
PRECISION DEVICES INSPECTOR/TESTER OPENING NOTES PATIENT ASLEEP, A/O X4. ON OXYGEN THERAPY AT 6 LPM; SATURATING WELL AT THIS TIME. NO S/S OF PAIN. RAC IV ACCESS G #18 PRESENT AND INTACT. SAFETY PRECAUTIONS IN PLACE; BED IN LOW POSITION AND LOCKED, RAILS UP X2, CALL LIGHT WITHIN REACH. WILL CONTINUE TO MONITOR PATIENT.
[2020-10-07] MEDS: BLOOD SUGAR DIAGNOSTIC 1 EACH STRIP VI SCH ×4 (08:00→21:57)
[2020-10-07] MEDS: POVIDONE-IODINE OINT 28.4 GM TUBE TP SCH (08:07)
[2020-10-07] MEDS: EZETIMIBE 10 MG TABLET PO SCH (08:39)
[2020-10-07] MEDS: ASPIRIN EC 325 MG TABLET.DR PO SCH (08:39)
[2020-10-07] MEDS: LISINOPRIL (20MG) 20 MG TABLET PO SCH (08:39)
[2020-10-07] MEDS: PANTOPRAZOLE 40 MG TABLET.DR PO SCH (08:39)
[2020-10-07] MEDS: CLOPIDOGREL BISULFATE 75 MG TABLET PO SCH (08:41)
[2020-10-07] MEDS: QUETIAPINE FUMARATE 25 MG TABLET PO SCH ×2 (08:41→16:27)
[2020-10-07] MEDS: FUROSEMIDE 40 MG TABLET PO SCH (08:41)
[2020-10-07] MEDS: DEXAMETHASONE SOD PHOSPHATE 4 MG/ML VIAL IV SCH (08:41)
[2020-10-07] MEDS: GABAPENTIN 100 MG CAPSULE PO SCH (08:44)
[2020-10-07] MEDS: AZITHROMYCIN 250 MG TABLET PO SCH (08:45)
[2020-10-07] MEDS: LOSARTAN POTASSIUM 50 MG TABLET PO SCH (08:46)
[2020-10-07] MEDS: CARVEDILOL 12.5 MG TABLET PO SCH ×2 (08:46→16:28)
[2020-10-07] MEDS: ENOXAPARIN SODIUM 40 MG/0.4 ML DISP.SYRIN SQ SCH ×2 (10:03→21:58)
[2020-10-07 10:18] VITALS: BP 132/65
[2020-10-07] MEDS: CEFTRIAXONE 1 G in IV D5W 50 ML IV SCH (11:36)
[2020-10-07] MEDS: INSULIN REGULAR, HUMAN 100 UNIT/ML 3 ML VIAL SQ PRN ×2 (12:02→17:30)
[2020-10-07 12:20] VITALS: BP 119/80
[2020-10-07 16:05] VITALS: BP 122/95
--- NOTE | 2020-10-07 18:46 | NUR ---
SANDAL PARTS ASSEMBLER CLOSING NOTES PATIENT RESTING, A/O X4 AND COMFORTABLE AT THIS TIME. ON OXYGEN THERAPY AT 6 LPM; SATURATING WELL DURING SHIFT. NO COMPLAINS OF PAIN DURING THE DAY. RAC IV ACCESS G #18 PRESENT AND INTACT. ALL NEEDS ATTENDED THROUGHOUT THE DAY. SAFETY PRECAUTIONS IN PLACE; BED IN LOW POSITION AND LOCKED, RAILS UP X2, CALL LIGHT WITHIN REACH. WILL ENDORSE TO MEMBERSHIP ADVISOR NURSE.
--- NOTE | 2020-10-07 19:10 | NUR ---
RECEIVED PT ON BED AWAKE A/O X3 ABLE TO VERBALIZED NEEDS, TAJIK SPEAKING WITH LITTLE BOTSWANAN, ON O2 6L SPO2 95% NO SOB NOTED, TELE MONITOR READS SINUS RHYTHM 70-80, ABLE TO EAT AND DRINK, ABLE TO AMBULATE TO BATHROOM WITH ASSISTANCE , DROPLET ISOLATION MAINTAINED FOR COVID 19 BED ON LOWEST POSITION AND LOCKED SIDE RAILS UP X 2 CALL LIGHT WITHIN REACH WILL CONT TO
[2020-10-07 20:00] VITALS: BP 116/64
[2020-10-07] MEDS ORDERED: INSULIN GLARGINE, 100 UNIT/ML CARTRIDGE SQ SCH (22:00)
[2020-10-07] MEDS: *INSULIN REGULAR(HUMULIN R)HUM 100 UNIT/ML VIAL SQ PRN (22:00)
[2020-10-08] VITALS: BP_SYST 126; BP_SYST 97; BP_DIAS 61; BP_DIAS 74
[2020-10-08 04:00] VITALS: BP 109/55
[2020-10-08 06:34] LABS: BASOPHILS % (AUTO) 0.8 % (0.0-2.0); EOSINOPHILS % (AUTO) 1.2 % (0.0-6.0); HEMATOCRIT 44 % (39-51); HEMOGLOBIN 14.7 g/dL (13.5-17.5); LYMPHOCYTES % (AUTO) 17.1 % (20.0-44.0); MEAN CORPUSCULAR HGB CONC 33 g/dl (31.0-36.0); MEAN CORPUSCULAR VOLUME 87 fL (80-96); MONOCYTES # (AUTO) 0.7 /CMM (0.1-1.30); MONOCYTES % (AUTO) 11.1 % (2.0-12.0); NEUTROPHILS # (AUTO) 4.2 /CMM (1.8-8.9); NEUTROPHILS % (AUTO) 69.8 % (43.0-81.0); PLATELET COUNT (AUTO) 304 /CMM (150-450); RED BLOOD CELL COUNT(AUTO) 5.08 MIL/uL (4.5-6.0)
[2020-10-08 06:53] LABS: CALCIUM, SERUM 8.5 mg/dL (8.5-10.1); CREATININE 1.1 mg/dL (0.6-1.3); MAGNESIUM 1.8 mg/dL (1.8-2.4); PHOSPHORUS 2.9 mg/dL (2.5-4.9); POTASSIUM 3.5 mmol/L (3.5-5.1)
--- NOTE | 2020-10-08 07:30 | NUR ---
DEPARTMENTAL SECRETARY OPENING NOTES PATIENT ASLEEP, EASILY WAKES UP AND RESPONDS TO QUESTIONS, A/O X4. YORUBA SPEAKING. ALSO PATIENT. TRANSLATES FOR HIM. ON OXYGEN THERAPY AT 6 LPM; SATURATING WELL AT THIS TIME. NO S/S OF PAIN. RAC IV ACCESS G #18 PRESENT AND INTACT. STANDY ASSIST. SAFETY PRECAUTIONS IN PLACE; BED IN LOW POSITION AND LOCKED, RAILS UP X2, CALL LIGHT WITHIN REACH. WILL CONTINUE TO MONITOR PATIENT.
--- NOTE | 2020-10-08 07:43 | NUR ---
PT ON BED AWAKE A/O X 3 STILL ON O2 6L VIA NC, NO DISTRESS NOTED, NO COMPLAINT, NO SIGNIFICANT CHANGES ON CONDITION NOTED ALL NEEDS ATTENDED DROPLET ISOLATION MAINTAIN FOR COVID 19, BED ON LOWEST POSITION AND LOCKED SIDE RAILS UP X2 CALL LIGHT WITHIN REACH WILL ENDORSED TO AM SHIFT NURSE
[2020-10-08] MEDS: BLOOD SUGAR DIAGNOSTIC 1 EACH STRIP VI SCH ×4 (08:12→22:25)
[2020-10-08 09:00] VITALS: BP 122/74
[2020-10-08] MEDS: AZITHROMYCIN 250 MG TABLET PO SCH (09:07)
[2020-10-08] MEDS: EZETIMIBE 10 MG TABLET PO SCH (09:07)
[2020-10-08] MEDS: DEXAMETHASONE SOD PHOSPHATE 4 MG/ML VIAL IV SCH (09:08)
[2020-10-08] MEDS: ASPIRIN EC 325 MG TABLET.DR PO SCH (09:08)
[2020-10-08] MEDS: FUROSEMIDE 40 MG TABLET PO SCH (09:08)
[2020-10-08] MEDS: GABAPENTIN 100 MG CAPSULE PO SCH (09:08)
[2020-10-08] MEDS: PANTOPRAZOLE 40 MG TABLET.DR PO SCH (09:08)
[2020-10-08] MEDS: CLOPIDOGREL BISULFATE 75 MG TABLET PO SCH (09:09)
[2020-10-08] MEDS: CARVEDILOL 12.5 MG TABLET PO SCH ×2 (09:09→17:00)
[2020-10-08] MEDS: LISINOPRIL (20MG) 20 MG TABLET PO SCH (09:10)
[2020-10-08] MEDS: LOSARTAN POTASSIUM 50 MG TABLET PO SCH (09:10)
[2020-10-08] MEDS: ENOXAPARIN SODIUM 40 MG/0.4 ML DISP.SYRIN SQ SCH ×2 (09:12→21:53)
[2020-10-08] MEDS: INSULIN REGULAR, HUMAN 100 UNIT/ML 3 ML VIAL SQ PRN ×2 (09:14→12:11)
[2020-10-08] MEDS: POVIDONE-IODINE OINT 28.4 GM TUBE TP SCH (09:16)
[2020-10-08] MEDS: QUETIAPINE FUMARATE 25 MG TABLET PO SCH ×2 (09:17→17:24)
--- NOTE | 2020-10-08 09:30 | NUR ---
RN NOTES DUE MEDS GIVEN
[2020-10-08 12:00] VITALS: BP 101/67
[2020-10-08] MEDS: CEFTRIAXONE 1 G in IV D5W 50 ML IV SCH (12:13)
--- NOTE | 2020-10-08 12:30 | NUR ---
RN NOTE O2 DECREASED TO 4L NASAL CANULA PER DR. FERNANDEZ. WILL MONITOR O2 SATURATION.
--- NOTE | 2020-10-08 15:10 | NUR ---
RN NOTES PATIENT AT 4L O2 NASAL CANULA SATTING AT 90- 93%
[2020-10-08 16:00] VITALS: BP 103/68
[2020-10-08] MEDS: *INSULIN REGULAR(HUMULIN R)HUM 100 UNIT/ML VIAL SQ PRN ×2 (17:18→22:00)
--- NOTE | 2020-10-08 18:46 | NUR ---
IRONWORKER CLOSING NOTES PATIENT RESTING, A/O X4. SINHALA SPEAKING. ALSO PATIENT. TRANSLATES FOR HIM. ON OXYGEN THERAPY AT 4 LPM; SATURATING 94% AT THIS TIME. NO S/S OF PAIN. RAC IV ACCESS G #18 PRESENT AND INTACT. STANDBY ASSIST. SAFETY PRECAUTIONS IN PLACE; BED IN LOW POSITION AND LOCKED, RAILS UP X2, CALL LIGHT WITHIN REACH. ALL NEEDS MET, WILL ENDORSE TO TO NEXT SHIFT FOR CORAL.
[2020-10-08 20:00] VITALS: BP 114/72
--- NOTE | 2020-10-08 20:00 | NUR ---
RN NOTES PATIENT SITTING AT BEDSIDE. A/O X4. BOLIVIAN SPEAKING. IN BED ONE, TRANSLATE FOR HIM. PATIENT O2 SATURATION 88% ON 4LPM VIA NASAL CANNULA. INCREASED TO 6LPM VIA NC, WITH O2 SAT 90%. DENIES ANY PAIN. RAC IV ACCESS G #18 PRESENT AND INTACT. BED LOCKED AND IN LOW POSITION. SIDE RAILS UP X2. SAFETY PRECAUTIONS IMPLEMENTED. CALL LIGHT WITHIN REACH. WILL CONTINUE TO MONITOR.
--- NOTE | 2020-10-08 21:50 | NUR ---
PATIENT NOTED WITH ELEVATED BLOOD SUGAR 406. NOTIFIED DR. JESSICA RIDDLE WITH NEW ORDERS TO INCREASE LANTUS TO 20 UNITS QHS NOTED AND CARRIED OUT.
[2020-10-08] MEDS: INSULIN GLARGINE, 100 UNIT/ML CARTRIDGE SQ SCH (22:29)
[2020-10-09] VITALS: BP 97/61
[2020-10-09 04:00] VITALS: BP 107/74
--- NOTE | 2020-10-09 04:00 | NUR ---
TITRATED O2 BACK TO 4LPM VIA NASAL CANNULA, WITH O2 SATURATING AT 90-94% NOTED.
--- NOTE | 2020-10-09 06:58 | NUR ---
RN NOTES PATIENT A/O X4. JAPANESE SPEAKING. IN BED ONE, TRANSLATES FOR HIM. PATIENT O2 SATURATION 94% ON 4LPM. DENIES ANY PAIN. RAC IV ACCESS G #18 PRESENT AND INTACT. DUE MEDS GIVEN ORDERED. BED LOCKED AND IN LOW POSITION. SIDE RAILS UP X2. SAFETY PRECAUTIONS IMPLEMENTED. CALL LIGHT WITHIN REACH. WILL ENDORSE TO ONCOMING SHIFT.
--- NOTE | 2020-10-09 07:30 | NUR ---
COMMISSIONING EDITOR OPENING NOTES PATIENT ASLEEP, EASILY WAKES UP AND RESPONDS TO QUESTIONS, A/O X4. PORTUGUESE SPEAKING. ALSO PATIENT. TRANSLATES FOR HIM. ON OXYGEN THERAPY AT 4 LPM; SATURATING 91%. DENIES SOB/PAIN. RAC IV ACCESS G #18 PRESENT AND INTACT. STANDY ASSIST. SAFETY PRECAUTIONS IN PLACE; BED IN LOW POSITION AND LOCKED, RAILS UP X2, CALL LIGHT WITHIN REACH. WILL CONTINUE TO MONITOR PATIENT.
[2020-10-09 08:00] VITALS: BP 116/76
[2020-10-09] MEDS: BLOOD SUGAR DIAGNOSTIC 1 EACH STRIP VI SCH ×4 (08:13→21:47)
[2020-10-09] MEDS: *INSULIN REGULAR(HUMULIN R)HUM 100 UNIT/ML VIAL SQ PRN ×2 (09:05→21:50)
[2020-10-09] MEDS: ENOXAPARIN SODIUM 40 MG/0.4 ML DISP.SYRIN SQ SCH ×2 (09:06→21:48)
[2020-10-09] MEDS: CLOPIDOGREL BISULFATE 75 MG TABLET PO SCH (09:08)
[2020-10-09] MEDS: GABAPENTIN 100 MG CAPSULE PO SCH (09:08)
[2020-10-09] MEDS: ASPIRIN EC 325 MG TABLET.DR PO SCH (09:08)
[2020-10-09] MEDS: FUROSEMIDE 40 MG TABLET PO SCH (09:09)
[2020-10-09] MEDS: EZETIMIBE 10 MG TABLET PO SCH (09:09)
[2020-10-09] MEDS: QUETIAPINE FUMARATE 25 MG TABLET PO SCH ×2 (09:09→17:56)
[2020-10-09] MEDS: LISINOPRIL (20MG) 20 MG TABLET PO SCH (09:09)
[2020-10-09] MEDS: LOSARTAN POTASSIUM 50 MG TABLET PO SCH (09:09)
[2020-10-09] MEDS: AZITHROMYCIN 250 MG TABLET PO SCH (09:10)
[2020-10-09] MEDS: PANTOPRAZOLE 40 MG TABLET.DR PO SCH (09:10)
[2020-10-09] MEDS: CARVEDILOL 12.5 MG TABLET PO SCH ×2 (09:10→17:58)
[2020-10-09] MEDS: DEXAMETHASONE SOD PHOSPHATE 4 MG/ML VIAL IV SCH (09:11)
[2020-10-09] MEDS: POVIDONE-IODINE OINT 28.4 GM TUBE TP SCH (09:11)
--- NOTE | 2020-10-09 09:30 | NUR ---
RN NOTES DUE MEDS GIVEN
[2020-10-09] MEDS: CEFTRIAXONE 1 G in IV D5W 50 ML IV SCH (11:40)
[2020-10-09 12:00] VITALS: BP 114/77
[2020-10-09] MEDS: INSULIN REGULAR, HUMAN 100 UNIT/ML 3 ML VIAL SQ PRN ×2 (12:06→17:56)
[2020-10-09 16:00] VITALS: BP 113/67
--- NOTE | 2020-10-09 17:12 | NUR ---
RN NOTES LIZZETH STAPLES, NOTIFIED ABOUT PATIENT'S BLOOD SUGAR 472 MG/DL, JUST AFTER EATING SNACKS, CHIPS, COOKIES AND SWEETS FROM HOME, WILL GIVE HUM R 15 UNITS. NO NEW ORDERS.
--- NOTE | 2020-10-09 19:08 | NUR ---
WATCH SUPERVISOR CLOSING NOTES PATIENT RESTING, A/O X4. ARABIC SPEAKING. ALSO PATIENT. TRANSLATES FOR HIM. ON OXYGEN THERAPY AT 4 LPM; SATURATING 94% AT THIS TIME. NO S/S OF PAIN. RAC IV ACCESS G #18 PRESENT AND INTACT. STANDBY ASSIST. SAFETY PRECAUTIONS IN PLACE; BED IN LOW POSITION AND LOCKED, RAILS UP X2, CALL LIGHT WITHIN REACH. ALL NEEDS MET, WILL ENDORSE TO TO NEXT SHIFT FOR CORAL.
--- NOTE | 2020-10-09 19:20 | NUR ---
DROP WORKER NOTES RECEIVED PATIENT IN BED, SLEEPING EASILY AROUSABLE BY VERBAL STIMULI. ALERT ORIENTED X 4. ON O2 VIA NC AT 4 LPM. NO RESPIRATORY DISTRESS NOTED. TELE MONITOR SHOWS SR HR 76. WITH RIGHT AC G18. FLUSHED ASEPTICALLY. PATENT AND INTACT. NO SIGNS OF INFECTION. WOUND DRESSINGS ON BLE CLEAN AND DRY AND INTACT. ALL SAFETY MEASURES IMPLEMENTED PER PROTOCOL. SIDE RAILS UP X 2. BED LOCKED IN LOWEST POSITION. CALL LIGHT WITHIN REACH.
[2020-10-09] MEDS: INSULIN GLARGINE, 100 UNIT/ML CARTRIDGE SQ SCH (21:49)
[2020-10-09 22:00] VITALS: BP 92/60
--- NOTE | 2020-10-09 22:00 | NUR ---
RESEARCH INTERVIEWER NOTE BS CHECKED 434 REPEATED 467, 1O UNITS OF HUMULIN REGULAR INSULIN SQ GIVEN ALSO GIVEN LANTUS [address] LOPEZ INFORMED NO NEW ORDER GIVEN, CONTINUE TO MONITOR.
[2020-10-10] VITALS: BP 111/55
[2020-10-10 04:00] VITALS: BP 124/70
[2020-10-10 05:58] LABS: CALCIUM, SERUM 8.9 mg/dL (8.5-10.1); CREATININE 0.9 mg/dL (0.6-1.3)
[2020-10-10 06:08] LABS: BASOPHILS % (AUTO) 0.3 % (0.0-2.0); EOSINOPHILS % (AUTO) 0.8 % (0.0-6.0); HEMATOCRIT 42 % (39-51); HEMOGLOBIN 14.1 g/dL (13.5-17.5); LYMPHOCYTES # (AUTO) 1.2 /CMM (0.8-4.8); LYMPHOCYTES % (AUTO) 20.1 % (20.0-44.0); MEAN CORPUSCULAR HGB CONC 34 g/dl (31.0-36.0); MEAN CORPUSCULAR VOLUME 86 fL (80-96); MONOCYTES # (AUTO) 0.6 /CMM (0.1-1.30); NEUTROPHILS # (AUTO) 4.2 /CMM (1.8-8.9); NEUTROPHILS % (AUTO) 68.8 % (43.0-81.0); PLATELET COUNT (AUTO) 278 /CMM (150-450); RED BLOOD CELL COUNT(AUTO) 4.92 MIL/uL (4.5-6.0); WHITE BLOOD COUNT (AUTO) 6.1 K/uL (4.3-11.0)
--- NOTE | 2020-10-10 06:40 | NUR ---
TRIM MECHANIC CLOSING NOTES PATIENT REMAINS IN BED, SLEEPING AROUSABLE TO VERBAL STIMULI. CONTINUES ON O2 VIA NC AT 4LPM, SATING TO 93% DENIES SOB. NO RESP DISTRESS NOTED. TELE READING SR HR 76. DENIES ANY PAIN. IV ON R AC REMAINS PATENT AND INTACT. NO S/SX OF HYPO/HYPERGLYCEMIA. ON FREQUENT VISUAL CHECK. ISOLATION PRECAUTION OBSERVED. CALL LIGHT WITHIN REACH AT ALL TIMES. BED LOCKED, IN LOWEST POSITION. SIDE RAILS UP X 2. WILL ENDORSE TO NEXT SHIFT NURSE FOR CORAL.
--- NOTE | 2020-10-10 07:32 | NUR ---
ms rn received on bed,awake,alert,oriented x4,not in any form of distress, respirations even and unlabored, no sob noted, patient on 4 liters, saturating 93%,denies pain at this time,all needs attended.
[2020-10-10 08:00] VITALS: BP 157/87
[2020-10-10] MEDS: BLOOD SUGAR DIAGNOSTIC 1 EACH STRIP VI SCH ×3 (08:34→17:09)
--- NOTE | 2020-10-10 09:40 | NUR ---
ms seay breakfast served,due meds given,tolerated well.
[2020-10-10] MEDS: FUROSEMIDE 40 MG TABLET PO SCH (09:59)
[2020-10-10] MEDS: GABAPENTIN 100 MG CAPSULE PO SCH (09:59)
[2020-10-10] MEDS: EZETIMIBE 10 MG TABLET PO SCH (09:59)
[2020-10-10] MEDS: DEXAMETHASONE SOD PHOSPHATE 4 MG/ML VIAL IV SCH (09:59)
[2020-10-10] MEDS: LOSARTAN POTASSIUM 50 MG TABLET PO SCH (10:00)
[2020-10-10] MEDS: ASPIRIN EC 325 MG TABLET.DR PO SCH (10:00)
[2020-10-10] MEDS: PANTOPRAZOLE 40 MG TABLET.DR PO SCH (10:00)
[2020-10-10] MEDS: CLOPIDOGREL BISULFATE 75 MG TABLET PO SCH (10:01)
[2020-10-10] MEDS: QUETIAPINE FUMARATE 25 MG TABLET PO SCH ×2 (10:01→17:15)
[2020-10-10] MEDS: CARVEDILOL 12.5 MG TABLET PO SCH ×2 (10:01→17:00)
[2020-10-10] MEDS: LISINOPRIL (20MG) 20 MG TABLET PO SCH (10:02)
[2020-10-10] MEDS: ENOXAPARIN SODIUM 40 MG/0.4 ML DISP.SYRIN SQ SCH (10:04)
[2020-10-10 12:00] VITALS: BP 104/53
[2020-10-10] MEDS: INSULIN REGULAR, HUMAN 100 UNIT/ML 3 ML VIAL SQ PRN ×2 (12:47→17:53)
--- NOTE | 2020-10-10 15:20 | NUR ---
ms rn both patient for d/c today, manager of case management arranged ambulance for cotton picker at 630pm.
[2020-10-10 16:00] VITALS: BP 90/67
--- NOTE | 2020-10-10 16:00 | NUR ---
ms rn patient refused to take picture of both lower legs,no s/s of infection noted.
[2020-10-10 17:00] VITALS: BP 90/67
[2020-10-10] MEDS: POVIDONE-IODINE OINT 28.4 GM TUBE TP SCH (17:16)
--- NOTE | 2020-10-10 18:33 | NUR ---
ms rn on bed, ready to go home.
--- NOTE | 2020-10-10 19:52 | NUR ---
RN NOTE PATIENT DISCHARGE TO HOME VIA GURNEY, PICKED UP BY [facility]. NO RESPIRATORY DISTRESS NOTED. DENIES ANY SOB OR PAIN. IV ON RIGHT AC REMOVED AND APPLIED GAUZE, NO SIGNS OF INFECTION NOTED. ALL BELONGINGS WERE SENT.
== END 2020-10-10 19:55 | disposition home or self-care (01) | DRG 177 ==
LOC: ER 11:35 → TELE-TD 20:38 → TELE1 22:14
PROVIDERS: ADMIT Nurse Practitioner Acute Care; ATTEND Nurse Practitioner Acute Care
PROC: XW033E5 Introduction of Remdesivir Anti-infective into Peripheral Vein, Percutaneous Approach, New Technology Group 5 (ICD-10-PCS; principal; 2020-09-30)
PROC: XW13325 Transfusion of Convalescent Plasma (Nonautologous) into Peripheral Vein, Percutaneous Approach, New Technology Group 5 (ICD-10-PCS; 2020-10-03)
DX: U07.1 COVID-19 (principal); J12.89 Other viral pneumonia; J96.01 Acute respiratory failure with hypoxia; I50.32 Chronic diastolic (congestive) heart failure; D68.59 Other primary thrombophilia; I87.313 Chronic venous hypertension (idiopathic) with ulcer of bilateral lower extremity; Z86.73 Personal history of transient ischemic attack (TIA), and cerebral infarction without residual deficits; K21.9 Gastro-esophageal reflux disease without esophagitis; I11.0 Hypertensive heart disease with heart failure; D69.6 Thrombocytopenia, unspecified; Z79.02 Long term (current) use of antithrombotics/antiplatelets; Z79.84 Long term (current) use of oral hypoglycemic drugs; Z79.82 Long term (current) use of aspirin; Z79.899 Other long term (current) drug therapy; I25.10 Atherosclerotic heart disease of native coronary artery without angina pectoris; D72.819 Decreased white blood cell count, unspecified; E66.01 Morbid (severe) obesity due to excess calories; E78.5 Hyperlipidemia, unspecified; I87.2 Venous insufficiency (chronic) (peripheral); Z87.891 Personal history of nicotine dependence; E11.65 Type 2 diabetes mellitus with hyperglycemia; E11.42 Type 2 diabetes mellitus with diabetic polyneuropathy; Z68.36 Body mass index [BMI] 36.0-36.9, adult
CPT/HCPCS: 36415; 71045-TC; 80048-TC; 80053-TC; 80061-TC; 80076-TC; 81001; 82962-TC; 83540-TC; 83605-TC; 83735-TC; 83880; 84100-TC; 84443-TC; 84484-TC; 85025-TC; 85378-TC; 85610-TC; 85730-TC; 86140-TC; 86850-TC; 87040-TC; 87081-TC; A4216; C9803; G0378; J0456; J0696; J1100; J1650; J1815; J7040; J7050; J7060; J7070; P9017-BL; U0003

== ENCOUNTER 2021-01-29 12:25 | Inpatient (IN) | payer MEDICARE, OTHER ==
[~2021-01-29] VITALS: Ht 167.6 cm; Wt 103.4 kg
[~2021-01-29 12:25] MED LIST: ASPI-869 PO; CARV12.52 PO; CLOP75TA15 PO; DAPA5TAB PO; EZET10TA32 PO; FURO40TA5 PO; GABA-532 PO; LOSA50TA39 PO; METF-442 PO; PANT40TA49 PO; QUET25TA PO; QUIN40TA14 PO
--- NOTE | 2021-01-29 12:45 | NUR ---
pt bibra from home to er bed 08 c/o sob x today, german speaking w/ history of stroke. 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 pt states history of chf. ble edema noted. gowned and placed on monitor. vss. awaiting md landa.
--- NOTE | 2021-01-29 12:48 | NUR ---
dr roberts at bedside for eval.
[2021-01-29] MEDS ORDERED: NITROGLYCERIN 0.4 MG/TAB BOTTLE ONE (12:59)
[2021-01-29] MEDS ORDERED: NITROGLYCERIN 0.4 MG/TAB BOTTLE SL ONE (13:00)
[2021-01-29] MEDS ORDERED: FUROSEMIDE 40 MG/4 ML VIAL ONE (13:04)
[2021-01-29 13:10] LABS: BASOPHILS # (AUTO) 0.2 /CMM (0.0-0.2); BASOPHILS % (AUTO) 2.9 % (0.0-2.0); EOSINOPHILS % (AUTO) 3.5 % (0.0-6.0); HEMATOCRIT 32 % (39-51); LYMPHOCYTES # (AUTO) 0.6 /CMM (0.8-4.8); LYMPHOCYTES % (AUTO) 9.6 % (20.0-44.0); MEAN CORPUSCULAR HGB CONC 31 g/dl (31.0-36.0); MEAN CORPUSCULAR VOLUME 90 fL (80-96); MONOCYTES # (AUTO) 0.4 /CMM (0.1-1.30); MONOCYTES % (AUTO) 7.4 % (2.0-12.0); NEUTROPHILS # (AUTO) 4.4 /CMM (1.8-8.9); NEUTROPHILS % (AUTO) 76.6 % (43.0-81.0); PLATELET COUNT (AUTO) 212 /CMM (150-450); RED BLOOD CELL COUNT(AUTO) 3.54 MIL/uL (4.5-6.0); WHITE BLOOD COUNT (AUTO) 5.8 K/uL (4.3-11.0)
[2021-01-29 13:30] LABS: CREATININE 0.6 mg/dL (0.6-1.3); POTASSIUM 4.2 mmol/L (3.5-5.1)
[2021-01-29] MEDS ORDERED: FUROSEMIDE 40 MG/4 ML VIAL IV ONE (13:30)
--- NOTE | 2021-01-29 14:24 | NUR ---
covid 19 swab collected and sent to lab
[2021-01-29] MEDS ORDERED: ATOR40TA PO (14:51)
[2021-01-29] MEDS ORDERED: LIRA0.6P2 SQ (14:51)
[2021-01-29] MEDS ORDERED: BUDE10.22 IH (14:51)
[2021-01-29] MEDS ORDERED: ASPI-1420 PO (14:51)
[2021-01-29] MEDS ORDERED: IPRA4AER INH (14:51)
[2021-01-29] MEDS ORDERED: NITR0.4T48 PO (14:51)
[2021-01-29] MEDS ORDERED: TEMAZEPAM 15 MG CAPSULE PO PRN (15:00)
[2021-01-29] MEDS ORDERED: MAG HYDROX/AL HYDROX/SIMETH 30 ML UDC PO PRN (15:00)
[2021-01-29] MEDS ORDERED: ACETAMINOPHEN 325 MG TABLET PO PRN (15:00)
[2021-01-29] MEDS ORDERED: MORPHINE SULFATE INJ 2 MG/ML DISP.SYRIN IV PRN (15:00)
[2021-01-29] MEDS ORDERED: MAGNESIUM HYDROXIDE 30 ML UDC PO PRN (15:00)
[2021-01-29] MEDS ORDERED: Z GUARD REMEDY 2 OZ OINT TP PRN (15:00)
[2021-01-29] MEDS ORDERED: ONDANSETRON HCL/PF 4 MG/2 ML VIAL IVP PRN (15:00)
[2021-01-29] MEDS ORDERED: HYDROCODONE/APAP 5/325MG TABLET PO PRN (15:00)
[2021-01-29] MEDS ORDERED: NITROGLYCERIN 0.4 MG/TAB BOTTLE SL PRN (15:30)
--- NOTE | 2021-01-29 15:32 | NUR ---
Lab called and covid negative
--- NOTE | 2021-01-29 15:40 | NUR ---
report given to pat seay for bhupinder.
--- NOTE | 2021-01-29 16:00 | NUR ---
JEWELRY ESTIMATOR NOTE PATIENT TRANSFERRED INTO BED 304-1. PATIENT A/O X3 WITH NO COMPLAINT OF PAIN OR NAUSEA. CURRENTLY ON 5L NC WITH SOB PRESENT. NO S/S OF RESPIRATORY DISTRESS. 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 SKIN IS INTACT. EDEMA PRESENT ON B LOWER EXTREMITIES. L UPPER WEAKNESS NOTED. CCHO DIET. IV PRESENT ON RHAND 20G. SAFETY MEASURES IN PLACE. SIDE RAILS RAISED. BED LOWERED. CALL LIGHT WITHIN REACH. WILL CONTINUE TO MONITOR.
[2021-01-29 18:08] LABS: THYROID STIMULATING HORMONE 1.687 uIU/mL (0.358-3.74)
[2021-01-29] MEDS: CARVEDILOL 12.5 MG TABLET PO SCH (18:30)
[2021-01-29] MEDS: ATORVASTATIN 40 MG TABLET PO SCH (18:30)
--- NOTE | 2021-01-29 18:59 | NUR ---
RN CLOSING NOTE PATIENT A/O X3 WITH NO COMPLAINT OF PAIN OR NAUSEA. CURRENTLY ON 5L NC WITH SOB PRESENT. NO S/S OF RESPIRATORY DISTRESS. CURRENTLY ON BOWLING BALL ENGRAVER. SKIN IS INTACT. EDEMA PRESENT ON B LOWER EXTREMITIES. L UPPER WEAKNESS NOTED. AMBULATORY WITH ASSIST WITH BEDSIDE COMMODE. IV PRESENT ON RHAND 20G. ROUTINE MEDS GIVEN. SAFETY MEASURES IN PLACE. SIDE RAILS RAISED. BED LOWERED. CALL LIGHT WITHIN REACH. REPORT GIVEN TO NIGHT NURSE FOR CORAL
[2021-01-29] MEDS ORDERED: ALBUTEROL FS 2.5 MG/0.5 ML VIAL.NEB NEB SCH (19:30)
--- NOTE | 2021-01-29 19:35 | NUR ---
FISH TENDER NOTE PATIENT DISCHARGED TO [facility]. FAMILY NOTIFIED AND PATIENT NOTIFIED. IV LINES REMOVED. ID BANDS REMOVED. PICTURES OF WOUNDS TAKEN. EXITCARE EDUCATION UTILIZED. REPORT GIVEN TO ANTHONY LECHUGA. TRANSPORTED TO FACILITY VIA AMBULANCE WITH REPORT GIVEN TO EMT. VITALS STABLE. Addendum: 01/29/21 at 1942 by DEBORA QUICK RN WRONG PATIENT -AP
[2021-01-29 20:00] VITALS: BP 133/91
[2021-01-29] MEDS: ALBUTEROL FS 2.5 MG/0.5 ML VIAL.NEB HHN SCH (20:28)
[2021-01-29] MEDS: IPRATROPIUM NEB FS 0.5 MG/2.5 ML AMPUL.NEB NEB SCH (20:28)
--- NOTE | 2021-01-29 20:36 | NUR ---
MALE MODEL: OPENING NOTES PATIENT IS SEEN AWAKE IN BED. PATIENT IS A/O X4. PT IS CURRENTLY ON 5L/MIN NC. BREATHING IS EVEN AND UNLABORED. PT IS ON A CONCRETE CRAFTSMAN. PT'S SKIN IS INTACT. PT HAS IV ACCESS ON HIS RIGHT HAND #20G. SAFETY MEASURES IN PLACE. SIDE RAILS RAISED. CALL LIGHT WITHIN REACH. PT WAS ENCOURAGED TO PRESS THE CALL LIGHT BUTTON IF HE NEEDS ASSISTANCE WITH GETTING UP FROM HIS BED; PT VERBALIZED UNDERSTANDING. WILL CONTINUE TO MONITOR THE PT.
[2021-01-29] MEDS: ENOXAPARIN SODIUM 40 MG/0.4 ML DISP.SYRIN SQ SCH (21:15)
[2021-01-30] VITALS: BP 164/89
--- NOTE | 2021-01-30 00:47 | NUR ---
MS/TELE/RN O2 SAT AT 5L O2 NC 88-89%, NO SOB NOTED, TITRATED O2 TO 10L SIMPLE MASK WITH O2 SAT 88-91%, PLACED ON NON REBREATHER MASK AT 15L O2, O2 SAT 95-98%. WILL CONTINUE TO MONITOR.
[2021-01-30] MEDS: IPRATROPIUM NEB FS 0.5 MG/2.5 ML AMPUL.NEB NEB SCH ×4 (00:52→20:07)
[2021-01-30] MEDS: ALBUTEROL FS 2.5 MG/0.5 ML VIAL.NEB HHN SCH ×4 (00:53→20:07)
--- NOTE | 2021-01-30 01:13 | NUR ---
RT NOTE PT ON NONREBREATHER MASK @ 100% 15LPM DUE TO SOB. RN CONNIE AWARE. WILL AWAIT FURTHER ORDERS.
--- NOTE | 2021-01-30 01:39 | NUR ---
MS/TELE/RN PER RT HE ATTEMPTED TO TITRATE DOWN THE OXYGEN TO SIMPLE MASK BUT THE O2 SAT WAS 88-89%, RT RECOMMENDS LASIX OR BIPAP. PLACED A CALL TO [facility] TO NOTIFY DR. PAUL, LEFT MESSAGE.
--- NOTE | 2021-01-30 02:12 | NUR ---
MS/TELE/RN DR. PAUL CALLED BACK, INFORMED HIM THE CLINICAL CONDITION OF THE PATIENT, ORDER FOR LASIX 20 MG IVP X 1 WAS RECEIVED.
[2021-01-30] MEDS ORDERED: FUROSEMIDE 20 MG/2 ML VIAL IV ONE (02:30)
[2021-01-30 04:00] VITALS: BP 132/64
--- NOTE | 2021-01-30 05:22 | NUR ---
RT NOTE RN NOTED TO ADMINISTER LASIX. ABLE TO WEAN PT OFF NONREBREATHER AND PLACED PT ON SIMPLE MASK 8LPM. SPO2 @ 94%, HR 84, RR 20. PT IN BED, NO RESPIRATORY DISTRESS NOTED. ALEXANDREA ROSALES @ BEDSIDE.
[2021-01-30 06:28] LABS: BASOPHILS % (AUTO) 0.4 % (0.0-2.0); EOSINOPHILS % (AUTO) 4.7 % (0.0-6.0); HEMATOCRIT 35 % (39-51); HEMOGLOBIN 11.1 g/dL (13.5-17.5); LYMPHOCYTES # (AUTO) 1.1 /CMM (0.8-4.8); LYMPHOCYTES % (AUTO) 21.4 % (20.0-44.0); MEAN CORPUSCULAR HGB CONC 32 g/dl (31.0-36.0); MEAN CORPUSCULAR VOLUME 88 fL (80-96); MONOCYTES # (AUTO) 0.5 /CMM (0.1-1.30); NEUTROPHILS # (AUTO) 3.2 /CMM (1.8-8.9); NEUTROPHILS % (AUTO) 63.5 % (43.0-81.0); PLATELET COUNT (AUTO) 225 /CMM (150-450); RED BLOOD CELL COUNT(AUTO) 3.98 MIL/uL (4.5-6.0)
--- NOTE | 2021-01-30 06:42 | NUR ---
BOOK REVIEWER: CLOSING NOTES PATIENT IS SEEN AWAKE IN BED. PATIENT IS A/O X3. PT IS CURRENTLY ON A NONREBREATHER MASK RUNNING 15L/MINUTE. PT IS IN NO RESPIRATORY DISTRESS. PT IS ON A BILINGUAL ACCOUNT MANAGER. PT HAS AN IV ACCESS ON HIS RIGHT HAND #20G. SAFETY MEASURES IN PLACE. SIDE RAILS RAISED. PT WAS ENCOURAGED TO PRESS THE CALL LIGHT BUTTON IF HE NEEDS ASSISTANCE WITH GETTING UP FROM HIS BED; PT VERBALIZED UNDERSTANDING. WILL ENDORSE CARE TO DAY SHIFT NURSE.
[2021-01-30 07:11] LABS: CALCIUM, SERUM 8.6 mg/dL (8.5-10.1); CREATININE 0.7 mg/dL (0.6-1.3); MAGNESIUM 1.3 mg/dL (1.8-2.4); PHOSPHORUS 3.3 mg/dL (2.5-4.9); POTASSIUM 3.5 mmol/L (3.5-5.1)
[2021-01-30 07:27] LABS: THYROID STIMULATING HORMONE 1.518 uIU/mL (0.358-3.74)
--- NOTE | 2021-01-30 07:46 | NUR ---
UPHOLSTERY REPAIRER OPENING NOTES RECEIVED PATIENT IN BED, AWAKE, A/O X3. PATIENT IS CURRENTLY ON NON-REBREATHER MASK SATURATING WELL WITHOUT ANY DISTRESS. NO COMPLAINS OF PAIN AT THIS TIME. TELE MONITOR WITH A CURRENT READING OF SR 91 BPM. IV ACCESS AT R HAND G #20. SAFETY PRECAUTIONS IN PLACE; BED IN LOW POSITION AND LOCKED, RAILS UP X2, CALL LIGHT WITHIN REACH. WILL CONTINUE TO MONITOR PATIENT.
--- NOTE | 2021-01-30 07:57 | NUR ---
WOUND CARE CONSULT: PT PRESENTS WITH REDNESS TO LOWER LEGS WITH EDEMA AND FLUID FILLED RAISED AREAS, PRESENT ON ADMISSION. DR VU NOTIFIED OF DPM CONSULT REQUEST. PT IS CONTINENT. MD IN AGREEMENT WITH PLAN OF CARE.
[2021-01-30 08:00] VITALS: BP 142/82
[2021-01-30] MEDS: CARVEDILOL 12.5 MG TABLET PO SCH ×2 (08:05→17:00)
[2021-01-30] MEDS: CLOPIDOGREL BISULFATE 75 MG TABLET PO SCH (08:06)
[2021-01-30] MEDS: ASPIRIN EC 81 MG TABLET.DR PO SCH (08:06)
[2021-01-30] MEDS: FUROSEMIDE 40 MG/4 ML VIAL IV SCH ×4 (08:06→20:17)
[2021-01-30] MEDS: EZETIMIBE 10 MG TABLET PO SCH (08:06)
[2021-01-30] MEDS: PANTOPRAZOLE 40 MG TABLET.DR PO SCH (08:06)
[2021-01-30] MEDS: LISINOPRIL (20MG) 20 MG TABLET PO SCH (08:06)
[2021-01-30] MEDS: FLUTICASONE/VILANTEROL 1 EACH BLST.W.DEV IH SCH (08:16)
[2021-01-30] MEDS ORDERED: FUROSEMIDE 40 MG/4 ML VIAL IV SCH (09:30)
[2021-01-30] MEDS: Magnesium 1GM/D5W 100ML PREMIX 100 ML IV SCH ×2 (09:58→11:13)
[2021-01-30] MEDS: POTASSIUM CHLORIDE 20 MEQ TAB.PRT.SR PO SCH ×3 (09:58→12:28)
[2021-01-30 13:59] LABS: ABG BASE EXCESS 9.6 mmol/L; ABG OXYGEN SATURATION 97.8 % (92.0-98.5); ABG PCO2 54.4 mmHg (35.0-45.0); ABG PH 7.433 (7.350-7.450); ABG PO2 107.1 mmHg (75.0-100.0); AaDO2 551.5 mmHg; COHb 0.5 % (0.5-1.5); MetHb 0.3 % (0.0-1.5); SITE, ABG Right Radial
[2021-01-30 16:00] VITALS: BP 119/64
--- NOTE | 2021-01-30 17:41 | NUR ---
CHILD DEVELOPMENT CONSULTANT NOTES CHECKED BP AT 1741 BP; 106/58 HR 81
[2021-01-30] MEDS: ATORVASTATIN 40 MG TABLET PO SCH (17:48)
[2021-01-30] MEDS: CLOTRIMAZOLE 1% 15 GM TUBE TP SCH (17:49)
--- NOTE | 2021-01-30 18:40 | NUR ---
TRIM MOUNTER CLOSING NOTES PATIENT REMAINS IN BED, AWAKE, A/O X3. PATIENT IS CURRENTLY ON NON-REBREATHER MASK SATURATING WELL WITHOUT ANY DISTRESS. NO COMPLAINS OF PAIN DURING THE DAY. TELE MONITOR WITH A CURRENT READING OF SR 79 BPM. IV ACCESS AT R HAND G #20. ALL NEEDS ATTENDED THROUGHOUT THE DAY. SAFETY PRECAUTIONS IN PLACE; BED IN LOW POSITION AND LOCKED, RAILS UP X2, CALL LIGHT WITHIN REACH. WILL ENDORSE TO CORD TIRE BUILDER NURSE.
--- NOTE | 2021-01-30 19:44 | NUR ---
REINFORCING IRON WORKER HELPER:OPENING NOTES PATIENT IS SEEN AWAKE IN BED. PT IS ALERT AND ORIENTED X3. PT IS CURRENTLY ON A NONREBREATHER MASK RUNNING 15L/MINUTE. PT IS IN NO RESPIRATORY DISTRESS. PT IS ON A HARDWOOD FLOOR INSTALLER. PT HAS AN IV ACCESS ON HIS RIGHT HAND GAUGE#20. SAFETY MEASURES IN PLACE. SIDE RAILS RAISED. CALL LIGHT IS WITHIN REACH. WILL CONTINUE TO MONITOR THE PT.
[2021-01-30 20:00] VITALS: BP 101/59
[2021-01-30] MEDS: ENOXAPARIN SODIUM 40 MG/0.4 ML DISP.SYRIN SQ SCH (20:20)
[2021-01-31] VITALS: BP 122/67
[2021-01-31] MEDS: IPRATROPIUM NEB FS 0.5 MG/2.5 ML AMPUL.NEB NEB SCH ×4 (02:14→19:25)
[2021-01-31] MEDS: ALBUTEROL FS 2.5 MG/0.5 ML VIAL.NEB HHN SCH ×4 (02:14→19:25)
[2021-01-31 04:00] VITALS: BP 104/58
[2021-01-31 06:06] LABS: BASOPHILS # (AUTO) 0.1 /CMM (0.0-0.2); BASOPHILS % (AUTO) 2.2 % (0.0-2.0); EOSINOPHILS % (AUTO) 3.8 % (0.0-6.0); HEMATOCRIT 37 % (39-51); HEMOGLOBIN 11.9 g/dL (13.5-17.5); LYMPHOCYTES # (AUTO) 1.1 /CMM (0.8-4.8); LYMPHOCYTES % (AUTO) 17.1 % (20.0-44.0); MEAN CORPUSCULAR HGB CONC 32 g/dl (31.0-36.0); MEAN CORPUSCULAR VOLUME 88 fL (80-96); MONOCYTES # (AUTO) 0.5 /CMM (0.1-1.30); MONOCYTES % (AUTO) 7.6 % (2.0-12.0); NEUTROPHILS # (AUTO) 4.4 /CMM (1.8-8.9); NEUTROPHILS % (AUTO) 69.3 % (43.0-81.0); PLATELET COUNT (AUTO) 248 /CMM (150-450); RED BLOOD CELL COUNT(AUTO) 4.23 MIL/uL (4.5-6.0); WHITE BLOOD COUNT (AUTO) 6.3 K/uL (4.3-11.0)
[2021-01-31 06:20] LABS: CALCIUM, SERUM 8.8 mg/dL (8.5-10.1); CREATININE 0.9 mg/dL (0.6-1.3); MAGNESIUM 1.5 mg/dL (1.8-2.4); POTASSIUM 3.5 mmol/L (3.5-5.1)
--- NOTE | 2021-01-31 07:30 | NUR ---
PT RECEIVED COMFORTABLY SITTING AT EDGE OF BED. NO S/S OR C/O PAIN OR DISTRESS NOTED. SIDERAILS UP X2, CALL LIGHT LEFT WITHIN REACH. WILL CONTINUE PLAN OF CARE.
--- NOTE | 2021-01-31 07:57 | NUR ---
SWEET PICKLE MAKER: CLOSING NOTES PATIENT IS SEEN AWAKE IN BED. PT IS ALERT AND ORIENTED X3. PT IS CURRENTLY ON A SIMPLE MASK, PT IS IN NO RESPIRATORY DISTRESS. PT IS ON A DRUM TENDER. PT HAS AN IV ACCESS ON HIS RIGHT HAND GAUGE#20. SAFETY MEASURES IN PLACE. SIDE RAILS RAISED. CALL LIGHT IS WITHIN REACH. WILL CONTINUE TO MONITOR THE PT.
[2021-01-31 08:00] VITALS: BP 113/77
[2021-01-31] MEDS ORDERED: BUMETANIDE INJ 8 MG in IV NS 0.9% 48 ML IV ONE (08:00)
[2021-01-31] MEDS: ASPIRIN EC 81 MG TABLET.DR PO SCH (08:56)
[2021-01-31] MEDS: EZETIMIBE 10 MG TABLET PO SCH (08:56)
[2021-01-31] MEDS: POTASSIUM CHLORIDE 20 MEQ TAB.PRT.SR PO SCH ×3 (08:56→10:31)
[2021-01-31] MEDS: ESCITALOPRAM OXALATE (10 MG) 10 MG TABLET PO SCH (08:57)
[2021-01-31] MEDS: CLOPIDOGREL BISULFATE 75 MG TABLET PO SCH (08:57)
[2021-01-31] MEDS: FUROSEMIDE 40 MG/4 ML VIAL IV SCH (09:02)
[2021-01-31] MEDS: CARVEDILOL 12.5 MG TABLET PO SCH ×2 (09:02→18:10)
[2021-01-31] MEDS: LISINOPRIL (20MG) 20 MG TABLET PO SCH (09:02)
[2021-01-31] MEDS: PANTOPRAZOLE 40 MG TABLET.DR PO SCH (09:20)
[2021-01-31] MEDS: FLUTICASONE/VILANTEROL 1 EACH BLST.W.DEV IH SCH (09:20)
[2021-01-31] MEDS: CLOTRIMAZOLE 1% 15 GM TUBE TP SCH ×2 (09:22→18:13)
[2021-01-31] MEDS: Magnesium 1GM/D5W 100ML PREMIX 100 ML IV SCH ×2 (10:31→11:40)
[2021-01-31 16:00] VITALS: BP 119/65
[2021-01-31] MEDS: ATORVASTATIN 40 MG TABLET PO SCH (18:10)
--- NOTE | 2021-01-31 18:18 | NUR ---
CHANGE OF SHIFT REPORT PT RESTING COMFORTABLY IN BED. NO S/S OR C/O PAIN OR DISTRESS NOTED. SIDE RAILS UP X2. CALL LIGHT LEFT WITHIN REACH. PT KEPT CLEAN, DRY, AND COMFORTABLE NO SIGNIFICANT CHANGES SINCE PREVIOUS SHIFT. WILL GIVE REPORT TO DARRELL LECHUGA.
--- NOTE | 2021-01-31 19:30 | NUR ---
MS RN OPENING NOTES PATIENT ON THE CHAIR GETTING O2 TREATMENT. A/OX4. NO S/S OF DISTRESS NOTED. NO C/O PAIN AT THE MOMENT. SAFETY PRECAUTION KEPT IN PLACE: BED IN LOWEST POSITION, BRAKES LOCKED, CALL LIGHT WITHIN REACH. WILL CONTINUE TO MONITOR.
[2021-01-31 20:00] VITALS: BP 105/63
[2021-01-31] MEDS: ENOXAPARIN SODIUM 40 MG/0.4 ML DISP.SYRIN SQ SCH (21:32)
[2021-02-01] MEDS: IPRATROPIUM NEB FS 0.5 MG/2.5 ML AMPUL.NEB NEB SCH ×4 (01:35→20:22)
[2021-02-01] MEDS: ALBUTEROL FS 2.5 MG/0.5 ML VIAL.NEB HHN SCH ×4 (01:35→20:22)
[2021-02-01 05:52] LABS: BASOPHILS % (AUTO) 0.6 % (0.0-2.0); HEMATOCRIT 34 % (39-51); HEMOGLOBIN 11.1 g/dL (13.5-17.5); LYMPHOCYTES # (AUTO) 1.5 /CMM (0.8-4.8); MEAN CORPUSCULAR HGB CONC 33 g/dl (31.0-36.0); MEAN CORPUSCULAR VOLUME 87 fL (80-96); MONOCYTES # (AUTO) 0.7 /CMM (0.1-1.30); MONOCYTES % (AUTO) 10.1 % (2.0-12.0); NEUTROPHILS % (AUTO) 61.3 % (43.0-81.0); PLATELET COUNT (AUTO) 250 /CMM (150-450); RED BLOOD CELL COUNT(AUTO) 3.91 MIL/uL (4.5-6.0); WHITE BLOOD COUNT (AUTO) 6.5 K/uL (4.3-11.0)
[2021-02-01 06:06] LABS: BILIRUBIN,TOTAL 0.7 mg/dL (0.2-1.0); CALCIUM, SERUM 8.9 mg/dL (8.5-10.1); MAGNESIUM 1.7 mg/dL (1.8-2.4); POTASSIUM 3.7 mmol/L (3.5-5.1); TOTAL PROTEIN, SERUM 6.7 g/dL (6.4-8.2)
--- NOTE | 2021-02-01 07:10 | NUR ---
MS RN CLOSING NOTES PATIENT IN BED WITH EYES CLOSED, BARELY WENT TO BED. PATIENT TOLERATING O2 OF 2LPM. NO S/S OF RESPIRATORY DISTRESS. NO C/O OF PAIN. PATIENT ABLE TO MAKE NEEDS KNOWN. ALL NEEDS ATTENDED. ALL SCHEDULED MEDS ADMINISTERED. SAFETY PRECAUTIONS KEPT IN PLACE THE WHOLE TIME: BED IN LOWEST, LOCKED POSITION; CALL LIGHT WITHIN REACH. WT. TAKEN THIS MORNING (270.7 LBS) AND OUTPUT OF 840 ML, DRAINING CLEAR, YELLOW URINE. NO SIGNIFICANT CHANGE FROM LAST SHIFT. WILL ENDORSE CARE TO MORNING RN.
[2021-02-01] MEDS: PANTOPRAZOLE 40 MG TABLET.DR PO SCH (07:30)
--- NOTE | 2021-02-01 07:35 | NUR ---
MS RN OPENING NOTES RECEIVED PATIENT IN BED, AWAKE, A/O X2. PATIENT ON OXYGEN THERAPY AT 4 LPM VIA NASAL CANULA; BREATHING EVEN AND UNLABORED; NO SOB NOTED ST THIS TIME; RT AT BEDSIDE WITH BREATHING TREATMENT. NO COMPLAINS OF PAIN. IV ACCESS AT R HAND G #20 PRESENT AND INTACT. SAFETY PRECAUTIONS IN PLACE; BED IN LOW POSITION AND LOCKED, RAILS UP X2, CALL LIGHT WITHIN REACH. WILL CONTINUE TO MONITOR PATIENT.
[2021-02-01 08:00] VITALS: BP 111/62
[2021-02-01] MEDS: CLOPIDOGREL BISULFATE 75 MG TABLET PO SCH (08:55)
[2021-02-01] MEDS: ASPIRIN EC 81 MG TABLET.DR PO SCH (08:55)
[2021-02-01] MEDS: ESCITALOPRAM OXALATE (10 MG) 10 MG TABLET PO SCH (08:55)
[2021-02-01] MEDS: FUROSEMIDE 40 MG/4 ML VIAL IV SCH (08:56)
[2021-02-01] MEDS: EZETIMIBE 10 MG TABLET PO SCH (08:56)
[2021-02-01] MEDS: CARVEDILOL 12.5 MG TABLET PO SCH ×2 (08:56→17:00)
[2021-02-01] MEDS: FLUTICASONE/VILANTEROL 1 EACH BLST.W.DEV IH SCH (08:57)
[2021-02-01] MEDS: LISINOPRIL (20MG) 20 MG TABLET PO SCH (08:57)
[2021-02-01] MEDS: CLOTRIMAZOLE 1% 15 GM TUBE TP SCH ×2 (09:00→18:02)
[2021-02-01 09:20] LABS: ABG BASE EXCESS 8.6 mmol/L; ABG OXYGEN SATURATION 90.8 % (92.0-98.5); ABG PCO2 40.7 mmHg (35.0-45.0); ABG PH 7.516 (7.350-7.450); ABG PO2 57.5 mmHg (75.0-100.0); AaDO2 159.2 mmHg; COHb 1.7 % (0.5-1.5); MetHb 0.4 % (0.0-1.5); O2Hb 88.9 % (94.0-97.0); SITE, ABG Right Radial; VENT MODE, BG nasal cannula
[2021-02-01] MEDS: Magnesium 1GM/D5W 100ML PREMIX 100 ML IV SCH ×2 (10:41→11:54)
[2021-02-01 16:02] VITALS: BP 113/72
[2021-02-01] MEDS: ATORVASTATIN 40 MG TABLET PO SCH (17:22)
--- NOTE | 2021-02-01 18:48 | NUR ---
MS RN CLOSING NOTES PATIENT REMAINS IN BED, AWAKE, A/O X2. PATIENT ON OXYGEN THERAPY AT 4 LPM VIA NASAL CANULA; BREATHING EVEN AND UNLABORED; NO SOB NOTED DURING THE SHIFT. NO COMPLAINS OF PAIN. IV ACCESS AT R HAND G #20 PRESENT AND INTACT. ALL NEEDS ATTENDED DURING THE DAY. SAFETY PRECAUTIONS IN PLACE; BED IN LOW POSITION AND LOCKED, RAILS UP X2, CALL LIGHT WITHIN REACH. WILL ENDORSE TO FLAVORING MACHINE OPERATOR NURSE.
--- NOTE | 2021-02-01 19:26 | NUR ---
MS RN OPENING NOTES PATIENT SITTING ON THE BED. A/OX4. NO S/S OF DISTRESS NOTED. IN OXYGEN NC 5LPM. NO C/O PAIN AT THE MOMENT. SAFETY PRECAUTION IN PLACE: BED IN LOWEST POSITION, BRAKES LOCKED, CALL LIGHT WITHIN REACH. WILL CONTINUE TO MONITOR.
[2021-02-01 20:00] VITALS: BP 123/70
[2021-02-01] MEDS: ENOXAPARIN SODIUM 40 MG/0.4 ML DISP.SYRIN SQ SCH (20:56)
[2021-02-02] MEDS: IPRATROPIUM NEB FS 0.5 MG/2.5 ML AMPUL.NEB NEB SCH ×3 (00:30→14:05)
[2021-02-02] MEDS: ALBUTEROL FS 2.5 MG/0.5 ML VIAL.NEB HHN SCH ×3 (00:30→14:05)
[2021-02-02 05:56] LABS: BASOPHILS % (AUTO) 0.6 % (0.0-2.0); EOSINOPHILS % (AUTO) 5.6 % (0.0-6.0); HEMATOCRIT 34 % (39-51); HEMOGLOBIN 11.1 g/dL (13.5-17.5); LYMPHOCYTES # (AUTO) 1.4 /CMM (0.8-4.8); MEAN CORPUSCULAR HGB CONC 32 g/dl (31.0-36.0); MEAN CORPUSCULAR VOLUME 87 fL (80-96); MONOCYTES # (AUTO) 0.6 /CMM (0.1-1.30); MONOCYTES % (AUTO) 8.9 % (2.0-12.0); NEUTROPHILS # (AUTO) 4.1 /CMM (1.8-8.9); NEUTROPHILS % (AUTO) 62.9 % (43.0-81.0); PLATELET COUNT (AUTO) 254 /CMM (150-450); RED BLOOD CELL COUNT(AUTO) 3.94 MIL/uL (4.5-6.0); WHITE BLOOD COUNT (AUTO) 6.4 K/uL (4.3-11.0)
[2021-02-02 06:30] LABS: CALCIUM, SERUM 8.2 mg/dL (8.5-10.1); CREATININE 0.8 mg/dL (0.6-1.3); MAGNESIUM 1.9 mg/dL (1.8-2.4); POTASSIUM 3.6 mmol/L (3.5-5.1)
--- NOTE | 2021-02-02 07:02 | NUR ---
MS RN CLOSING NOTES PATIENT SITTING IN BED ON HIS IPAD. A/OX3-4. NO SIGNS OF DISTRESS NOTED. TOLERATING OXYGEN IN 5LPM NC. NO C/O PAIN AT THE MOMENT. PATIENT ABLE TO MAKE NEEDS KNOWN. ALL NEEDS ATTENDED. ALL SCHEDULED MEDS ADMINISTERED. SAFETY PRECAUTIONS KEPT IN PLACE THE WHOLE SHIFT: BED IN LOWEST, LOCKED POSITION, CALL LIGHT WITHIN REACH. DAILY WEIGHT AND INTAKE OUTPUT CHARTED. NO SIGNIFICANT CHANGE SINCE LAST SHIFT. WILL ENDORSE CARE TO MORNING SHIFT RN.
--- NOTE | 2021-02-02 07:30 | NUR ---
RN MS NOTES PT AWAKE, SITTING IN BED, ALERT AND VERBALLY RESPONSIVE, NOT IN DISTRESS, NO COMPLAINT OF PAIN, CALL LIGHT WITHIN REACH, ON O2 AT 5LPM VIA N/C WITH O2 SAT OF 95%, EATING BREAKFAST AND LISTENING TO MUSIC, NEEDS ATTENDED.
[2021-02-02 08:10] VITALS: BP 116/68
[2021-02-02] MEDS: PANTOPRAZOLE 40 MG TABLET.DR PO SCH (08:15)
[2021-02-02] MEDS: FLUTICASONE/VILANTEROL 1 EACH BLST.W.DEV IH SCH (08:51)
[2021-02-02] MEDS: FUROSEMIDE 40 MG/4 ML VIAL IV SCH (08:52)
[2021-02-02] MEDS: CLOPIDOGREL BISULFATE 75 MG TABLET PO SCH (08:52)
[2021-02-02] MEDS: ASPIRIN EC 81 MG TABLET.DR PO SCH (08:52)
[2021-02-02] MEDS: ESCITALOPRAM OXALATE (10 MG) 10 MG TABLET PO SCH (08:52)
[2021-02-02] MEDS: EZETIMIBE 10 MG TABLET PO SCH (08:52)
[2021-02-02] MEDS: CARVEDILOL 12.5 MG TABLET PO SCH ×2 (08:58→16:23)
[2021-02-02] MEDS: LISINOPRIL (20MG) 20 MG TABLET PO SCH (08:58)
[2021-02-02] MEDS: CLOTRIMAZOLE 1% 15 GM TUBE TP SCH ×2 (08:59→17:13)
--- NOTE | 2021-02-02 13:00 | NUR ---
RN MS NOTES PT AWAKE, SITTING IN HIS CHAIR, NO SOB, NO COMPLAINT OF PAIN, PT ABLE TO WALK WITH PHYSICAL THERAPY, PT ASSISTED TO BATHROOM NEEDED, PER MILDRED DUKES, PT HAS BEEN ACCEPTED AT [facility], AWAITING BED AVAILABILITY, PT SEEN BY DR. LYNN.
[2021-02-02 16:22] VITALS: BP 106/60
[2021-02-02 16:23] VITALS: BP 106/60
[2021-02-02] MEDS: ATORVASTATIN 40 MG TABLET PO SCH (17:12)
--- NOTE | 2021-02-02 18:00 | NUR ---
RN MS NOTES PT AWAKE, ALERT AND ORIENTED, SITTING IN HIS CHAIR, SEEN BY DR. LYNN, DISCHARGE ORDER GIVEN, PT TO BE DISCHARGED TO [facility], PT INFORMED, DISCHARGE AND MEDICATION INSTRUCTIONS PROVIDED TO PT, REPORT GIVEN TO NAOMIE SIU RN OF [place], BELONGINGS ACCOUNTED FOR, SKIN CHECK AND PHOTOS TAKEN, PICKED UP BY 2 AMBULANCE PERSONNEL, LEFT VIA GUERNEY IN STABLE CONDITION.
== END 2021-02-02 17:57 | DRG 291 ==
LOC: ER 13:32 → TELE 16:18 → MED 01-31 08:01
PROVIDERS: ADMIT Nurse Practitioner Acute Care; ATTEND Nurse Practitioner Family
DX: I11.0 Hypertensive heart disease with heart failure (principal); J96.01 Acute respiratory failure with hypoxia; E66.2 Morbid (severe) obesity with alveolar hypoventilation; Z68.42 Body mass index [BMI] 45.0-49.9, adult; I69.354 Hemiplegia and hemiparesis following cerebral infarction affecting left non-dominant side; M86.172 Other acute osteomyelitis, left ankle and foot; I50.33 Acute on chronic diastolic (congestive) heart failure; I25.10 Atherosclerotic heart disease of native coronary artery without angina pectoris; K21.9 Gastro-esophageal reflux disease without esophagitis; D63.8 Anemia in other chronic diseases classified elsewhere; Z79.82 Long term (current) use of aspirin; Z79.84 Long term (current) use of oral hypoglycemic drugs; Z79.899 Other long term (current) drug therapy; E11.51 Type 2 diabetes mellitus with diabetic peripheral angiopathy without gangrene; F32.9 Major depressive disorder, single episode, unspecified; E78.5 Hyperlipidemia, unspecified; Z86.16 Personal history of COVID-19; F41.9 Anxiety disorder, unspecified; Z79.02 Long term (current) use of antithrombotics/antiplatelets; I87.2 Venous insufficiency (chronic) (peripheral); Z89.422 Acquired absence of other left toe(s); E11.69 Type 2 diabetes mellitus with other specified complication; B35.9 Dermatophytosis, unspecified; M19.079 Primary osteoarthritis, unspecified ankle and foot; Z87.891 Personal history of nicotine dependence; Z95.1 Presence of aortocoronary bypass graft
CPT/HCPCS: 36415; 36600; 71045-TC; 73630-TC; 80048-TC; 80053-TC; 80061-TC; 82728-TC; 82803-TC; 83540-TC; 83735-TC; 83880; 84100-TC; 84439-TC; 84443-TC; 84484-TC; 85025-TC; 87081-TC; 93307-TC; 93970-TC; 94799-TC; 97112-TC; 97116-TC; 97530-TC; C9803; G0378; J1650; J1940; J3475; J3490; J7050

== ENCOUNTER 2023-12-15 11:47 | Inpatient (IN) | payer MEDICARE, OTHER ==
[~2023-12-15] VITALS: Ht 182.9 cm; Wt 112.0 kg
[~2023-12-15 11:47] MED LIST changes: +ASPI-1420 PO; -ASPI-869 PO; +ATOR40TA PO; +BUDE10.22 IH; -DAPA5TAB PO; -GABA-532 PO; +IPRA4AER INH; +LIRA0.6P2 SQ; -LOSA50TA39 PO; +NITR0.4T48 PO; -QUET25TA PO
[2023-12-15] MEDS ORDERED: methylPREDNISolone SOD SUCC 125 MG/2ML VIAL ONE (12:32)
[2023-12-15 12:33] LABS: BASOPHILS % (AUTO) 0.6 % (0.0-2.0); EOSINOPHILS # (AUTO) 0.2 K/uL (0.0-0.7); EOSINOPHILS % (AUTO) 3.2 % (0.0-6.0); HEMATOCRIT 41 % (39-51); LYMPHOCYTES # (AUTO) 0.8 K/uL (0.8-4.8); LYMPHOCYTES % (AUTO) 12.1 % (20.0-44.0); MEAN CORPUSCULAR HEMOGLOBIN 26 PG (26.0-33.0); MEAN CORPUSCULAR HGB CONC 32 g/dl (31.0-36.0); MEAN CORPUSCULAR VOLUME 80 fL (80-96); MONOCYTES # (AUTO) 0.6 K/uL (0.1-1.30); MONOCYTES % (AUTO) 9.5 % (2.0-12.0); NEUTROPHILS # (AUTO) 4.7 K/uL (1.8-8.9); NEUTROPHILS % (AUTO) 74.6 % (43.0-81.0); PLATELET COUNT (AUTO) 162 K/uL (150-450); RED BLOOD CELL COUNT(AUTO) 5.05 MIL/uL (4.5-6.0); RED CELL DISTRIBUTION WIDTH 17.6 % (11.5-15.0); WHITE BLOOD COUNT (AUTO) 6.3 K/uL (4.3-11.0)
[2023-12-15] MEDS: methylPREDNISolone SOD SUCC 125 MG/2ML VIAL IV ONE (12:35)
[2023-12-15] MEDS ORDERED: IPRATROPIUM NEB FS 0.5 MG/2.5 ML AMPUL.NEB ONE (12:37)
[2023-12-15] MEDS ORDERED: ALBUTEROL FS 2.5 MG/3 ML VIAL.NEB ONE (12:37)
[2023-12-15 12:41] VITALS: O2SAT 97
[2023-12-15] MEDS: ALBUTEROL FS 2.5 MG/3 ML VIAL.NEB CONTNEB ONE (12:41)
[2023-12-15] MEDS: IPRATROPIUM NEB FS 0.5 MG/2.5 ML AMPUL.NEB NEB ONE (12:41)
[2023-12-15 12:59] LABS: CALCIUM, SERUM 9.5 mg/dL (8.5-10.1); CARBON DIOXIDE 27 mmol/L (21-32); CHLORIDE 102 mmol/L (98-107); CREATININE 1.3 mg/dL (0.6-1.3); GLUCOSE 172 mg/dL (74-106); POTASSIUM 5.3 mmol/L (3.5-5.1); SODIUM SERUM 137 mmol/L (136-145); UREA NITROGEN, BLOOD 25 mg/dL (7-18)
[2023-12-15 13:14] LABS: ALANINE AMINOTRANSFERASE 17 U/L (12-78); ALBUMIN 3.2 g/dL (3.4-5.0); ALKALINE PHOSPHATASE 78 U/L (46-116); ASPARTATE AMINOTRANSFERASE 28 U/L (15-37); BILIRUBIN,TOTAL 0.4 mg/dL (0.2-1.0); NT-PRO BNP 70 pg/mL (0-125); TOTAL PROTEIN, SERUM 7.8 g/dL (6.4-8.2)
[2023-12-15] MEDS ORDERED: BLOO-668 IN (13:39)
[2023-12-15] MEDS ORDERED: ZILE600T5 PO (13:39)
[2023-12-15] MEDS ORDERED: METF-867 PO (13:39)
[2023-12-15] MEDS ORDERED: GABA-532 PO (13:39)
[2023-12-15] MEDS ORDERED: LISI40TA13 PO (13:39)
[2023-12-15] MEDS ORDERED: ORPH1TAB PO (13:39)
[2023-12-15] MEDS ORDERED: SITA100T PO (13:39)
[2023-12-15] MEDS ORDERED: EMPA25TA PO (13:39)
[2023-12-15] MEDS ORDERED: DIPH-1062 PO (13:39)
[2023-12-15] MEDS ORDERED: ASPI-992 PO (13:39)
[2023-12-15] MEDS ORDERED: OMEP1CAP24 PO (13:39)
[2023-12-15] MEDS ORDERED: MUPI22OI2 TP (13:39)
[2023-12-15 13:41] VITALS: O2SAT 98
[2023-12-15 13:43] LABS: BILIRUBIN,DIRECT 0.1 mg/dL (0.0-0.2)
[2023-12-15] MEDS ORDERED: BUDE10.26 INH (13:59)
[2023-12-15] MEDS ORDERED: ZOLPIDEM TARTRATE 5 MG TABLET PO PRN (15:30)
[2023-12-15] MEDS ORDERED: MAG HYDROX/AL HYDROX/SIMETH 30 ML UDC PO PRN (15:30)
[2023-12-15] MEDS ORDERED: ONDANSETRON HCL/PF 4 MG/2 ML VIAL IVP PRN (15:30)
[2023-12-15] MEDS ORDERED: DEXTROSE 50%-WATER 50 ML DISP.SYRIN IV PRN (15:30)
[2023-12-15] MEDS: ALBUTEROL HALF STRENGTH 1.25 MG/3 ML VIAL.NEB NEB SCH (17:00)
[2023-12-15] MEDS: IPRATROPIUM NEB FS 0.5 MG/2.5 ML AMPUL.NEB NEB SCH (17:00)
[2023-12-15] MEDS: BLOOD SUGAR DIAGNOSTIC 1 EACH STRIP IN SCH (18:24)
[2023-12-15] MEDS: INSULIN REGULAR, HUMAN 100 UNIT/ML 3 ML VIAL SQ PRN (18:26)
[2023-12-15] MEDS: ENOXAPARIN SODIUM 40 MG/0.4 ML DISP.SYRIN SQ SCH (18:28)
[2023-12-15] MEDS: LEVOFLOXACIN (250MG) 250 MG TABLET PO SCH (18:30)
[2023-12-15 19:52] VITALS: O2SAT 87
[2023-12-15 20:00] VITALS: BP 136/81; TEMP 97; O2SAT 95
[2023-12-15 20:07] VITALS: O2SAT 96
[2023-12-15] MEDS: methylPREDNISolone SOD SUCC 40 MG/ML VIAL IV SCH (21:54)
[2023-12-16] VITALS (18 sets, daily range): BP systolic 116–142; BP diastolic 60–81; TEMP 97.3–98.6; O2SAT 89–98
[2023-12-16 07:17] LABS: BASOPHILS % (AUTO) 0.1 % (0.0-2.0); HEMATOCRIT 39 % (39-51); HEMOGLOBIN 12.6 g/dL (13.5-17.5); LYMPHOCYTES # (AUTO) 0.5 K/uL (0.8-4.8); LYMPHOCYTES % (AUTO) 11.6 % (20.0-44.0); MEAN CORPUSCULAR HEMOGLOBIN 26 PG (26.0-33.0); MEAN CORPUSCULAR HGB CONC 32 g/dl (31.0-36.0); MEAN CORPUSCULAR VOLUME 81 fL (80-96); MONOCYTES # (AUTO) 0.2 K/uL (0.1-1.30); MONOCYTES % (AUTO) 4.9 % (2.0-12.0); NEUTROPHILS # (AUTO) 3.4 K/uL (1.8-8.9); NEUTROPHILS % (AUTO) 83.4 % (43.0-81.0); PLATELET COUNT (AUTO) 158 K/uL (150-450); RED BLOOD CELL COUNT(AUTO) 4.84 MIL/uL (4.5-6.0); RED CELL DISTRIBUTION WIDTH 17.5 % (11.5-15.0); WHITE BLOOD COUNT (AUTO) 4.1 K/uL (4.3-11.0)
[2023-12-16 07:23] LABS: CALCIUM, SERUM 9.3 mg/dL (8.5-10.1); CREATININE 1.2 mg/dL (0.6-1.3); MAGNESIUM 2.1 mg/dL (1.8-2.4); PHOSPHORUS 5.1 mg/dL (2.5-4.9); POTASSIUM 5.1 mmol/L (3.5-5.1)
[2023-12-16] MEDS: MAGNESIUM HYDROXIDE 30 ML UDC PO PRN (10:22)
[2023-12-16] MEDS: FUROSEMIDE 20 MG/2 ML VIAL IV SCH (13:05)
[2023-12-16] MEDS: CARVEDILOL 12.5 MG TABLET PO SCH (16:28)
[2023-12-16] MEDS: IPRATROPIUM NEB FS 0.5 MG/2.5 ML AMPUL.NEB NEB SCH (16:30)
[2023-12-16] MEDS: ALBUTEROL HALF STRENGTH 1.25 MG/3 ML VIAL.NEB NEB SCH (16:30)
[2023-12-16] MEDS: BUDESONIDE RESPULE INH 0.5 MG/2 ML AMPUL.NEB IH SCH (17:00)
[2023-12-16] MEDS: ATORVASTATIN 40 MG TABLET PO SCH (17:47)
[2023-12-16] MEDS: ALBUTEROL FS 2.5 MG/3 ML VIAL.NEB NEB SCH (19:30)
[2023-12-16] MEDS: GABAPENTIN 100 MG CAPSULE PO SCH (21:21)
[2023-12-17] VITALS (15 sets, daily range): BP systolic 101–130; BP diastolic 58–84; TEMP 97.3–98.8; O2SAT 90–98
[2023-12-17 07:06] LABS: HEMATOCRIT 40 % (39-51); LYMPHOCYTES # (AUTO) 0.5 K/uL (0.8-4.8); LYMPHOCYTES % (AUTO) 5.9 % (20.0-44.0); MEAN CORPUSCULAR HEMOGLOBIN 26 PG (26.0-33.0); MEAN CORPUSCULAR HGB CONC 33 g/dl (31.0-36.0); MEAN CORPUSCULAR VOLUME 80 fL (80-96); MONOCYTES # (AUTO) 0.4 K/uL (0.1-1.30); MONOCYTES % (AUTO) 4.8 % (2.0-12.0); NEUTROPHILS # (AUTO) 7.4 K/uL (1.8-8.9); NEUTROPHILS % (AUTO) 89.3 % (43.0-81.0); PLATELET COUNT (AUTO) 178 K/uL (150-450); RED BLOOD CELL COUNT(AUTO) 4.98 MIL/uL (4.5-6.0); RED CELL DISTRIBUTION WIDTH 17.5 % (11.5-15.0); WHITE BLOOD COUNT (AUTO) 8.3 K/uL (4.3-11.0)
[2023-12-17 07:15] LABS: CALCIUM, SERUM 9.4 mg/dL (8.5-10.1); CREATININE 1.1 mg/dL (0.6-1.3); POTASSIUM 5.7 mmol/L (3.5-5.1)
[2023-12-17] MEDS: PANTOPRAZOLE 40 MG TABLET.DR PO SCH (07:51)
[2023-12-17] MEDS: ASPIRIN 325 MG TABLET PO SCH (08:18)
[2023-12-17] MEDS: LISINOPRIL (20MG) 20 MG TABLET PO SCH (08:19)
[2023-12-17] MEDS: CLOPIDOGREL BISULFATE 75 MG TABLET PO SCH (08:19)
[2023-12-17] MEDS: LINAGLIPTIN 5 MG TABLET PO SCH (08:19)
[2023-12-17] MEDS: EZETIMIBE 10 MG TABLET PO SCH (08:19)
[2023-12-17] MEDS: EMPAGLIFLOZIN 25 MG TABLET PO SCH (09:00)
[2023-12-17] MEDS: FUROSEMIDE 40 MG/4 ML VIAL IV ONE (14:30)
[2023-12-17] MEDS: ACETAMINOPHEN 325 MG TABLET PO PRN (21:51)
[2023-12-17] MEDS: ZOLPIDEM TARTRATE 5 MG TABLET PO ONE (23:51)
[2023-12-18] VITALS (14 sets, daily range): BP systolic 105–135; BP diastolic 63–86; TEMP 97.5–98.4; O2SAT 92–99
[2023-12-18 08:19] LABS: BASOPHILS % (AUTO) 0.1 % (0.0-2.0); HEMATOCRIT 44 % (39-51); HEMOGLOBIN 14.1 g/dL (13.5-17.5); LYMPHOCYTES # (AUTO) 0.6 K/uL (0.8-4.8); LYMPHOCYTES % (AUTO) 5.2 % (20.0-44.0); MEAN CORPUSCULAR HEMOGLOBIN 26 PG (26.0-33.0); MEAN CORPUSCULAR HGB CONC 32 g/dl (31.0-36.0); MEAN CORPUSCULAR VOLUME 80 fL (80-96); MONOCYTES # (AUTO) 0.4 K/uL (0.1-1.30); MONOCYTES % (AUTO) 3.5 % (2.0-12.0); NEUTROPHILS # (AUTO) 10.5 K/uL (1.8-8.9); NEUTROPHILS % (AUTO) 91.2 % (43.0-81.0); PLATELET COUNT (AUTO) 211 K/uL (150-450); RED CELL DISTRIBUTION WIDTH 17.7 % (11.5-15.0); WHITE BLOOD COUNT (AUTO) 11.5 K/uL (4.3-11.0)
[2023-12-18 08:40] LABS: CALCIUM, SERUM 9.7 mg/dL (8.5-10.1); CREATININE 1.1 mg/dL (0.6-1.3); POTASSIUM 5.8 mmol/L (3.5-5.1)
[2023-12-18] MEDS: FUROSEMIDE 40 MG/4 ML VIAL IV SCH (10:30)
[2023-12-18] MEDS: methylPREDNISolone SOD SUCC 40 MG/ML VIAL IV SCH (14:30)
[2023-12-19] VITALS (18 sets, daily range): BP systolic 120–133; BP diastolic 58–76; TEMP 97.4–98.3; O2SAT 90–99
[2023-12-19] MEDS: ZOLPIDEM TARTRATE 5 MG TABLET PO ONE (00:59)
[2023-12-19 07:28] LABS: EOSINOPHILS % (AUTO) 0.1 % (0.0-6.0); HEMATOCRIT 47 % (39-51); LYMPHOCYTES # (AUTO) 1.2 K/uL (0.8-4.8); LYMPHOCYTES % (AUTO) 10.1 % (20.0-44.0); MEAN CORPUSCULAR HEMOGLOBIN 26 PG (26.0-33.0); MEAN CORPUSCULAR HGB CONC 32 g/dl (31.0-36.0); MEAN CORPUSCULAR VOLUME 80 fL (80-96); MONOCYTES # (AUTO) 1.1 K/uL (0.1-1.30); MONOCYTES % (AUTO) 9.2 % (2.0-12.0); NEUTROPHILS # (AUTO) 9.9 K/uL (1.8-8.9); NEUTROPHILS % (AUTO) 80.6 % (43.0-81.0); PLATELET COUNT (AUTO) 214 K/uL (150-450); RED BLOOD CELL COUNT(AUTO) 5.84 MIL/uL (4.5-6.0); RED CELL DISTRIBUTION WIDTH 17.8 % (11.5-15.0); WHITE BLOOD COUNT (AUTO) 12.3 K/uL (4.3-11.0)
[2023-12-19 07:48] LABS: CALCIUM, SERUM 9.1 mg/dL (8.5-10.1); CREATININE 0.9 mg/dL (0.6-1.3); POTASSIUM 4.8 mmol/L (3.5-5.1)
[2023-12-20] VITALS (11 sets, daily range): BP systolic 106–122; BP diastolic 63–90; TEMP 97.5–98.7; O2SAT 90–100
[2023-12-20 07:09] LABS: BASOPHILS % (AUTO) 0.1 % (0.0-2.0); EOSINOPHILS % (AUTO) 0.5 % (0.0-6.0); HEMATOCRIT 46 % (39-51); HEMOGLOBIN 14.9 g/dL (13.5-17.5); LYMPHOCYTES # (AUTO) 1.6 K/uL (0.8-4.8); LYMPHOCYTES % (AUTO) 16.4 % (20.0-44.0); MEAN CORPUSCULAR HEMOGLOBIN 26 PG (26.0-33.0); MEAN CORPUSCULAR HGB CONC 32 g/dl (31.0-36.0); MEAN CORPUSCULAR VOLUME 80 fL (80-96); MONOCYTES # (AUTO) 0.9 K/uL (0.1-1.30); MONOCYTES % (AUTO) 9.3 % (2.0-12.0); NEUTROPHILS # (AUTO) 7.4 K/uL (1.8-8.9); NEUTROPHILS % (AUTO) 73.7 % (43.0-81.0); PLATELET COUNT (AUTO) 196 K/uL (150-450); RED BLOOD CELL COUNT(AUTO) 5.75 MIL/uL (4.5-6.0); RED CELL DISTRIBUTION WIDTH 18.1 % (11.5-15.0)
[2023-12-20 07:45] LABS: CREATININE 0.9 mg/dL (0.6-1.3); POTASSIUM 4.8 mmol/L (3.5-5.1)
[2023-12-20] MEDS: predniSONE 20 MG TABLET PO SCH (08:48)
[2023-12-20] MEDS ORDERED: LEVO250T59 PO (09:49)
[2023-12-20] MEDS ORDERED: PRED20TA PO (09:49)
[2023-12-20] MEDS ORDERED: IPRA0.2S9 NEB (09:49)
[2023-12-20] MEDS ORDERED: SACU1TAB7 PO (09:49)
[2023-12-20] MEDS ORDERED: ALBUT2 NEB (09:49)
== END 2023-12-20 17:00 | disposition home health service (06) | DRG 291 ==
LOC: ER 11:49 → TELE1 15:39 → MEDSG1 12-18 11:52 → TELE1 12-19 22:35 → MEDSG1 12-20 10:29
PROVIDERS: ADMIT Nurse Practitioner Acute Care; ATTEND Nurse Practitioner Acute Care
DX: I11.0 Hypertensive heart disease with heart failure (principal); I50.23 Acute on chronic systolic (congestive) heart failure; J96.01 Acute respiratory failure with hypoxia; J44.1 Chronic obstructive pulmonary disease with (acute) exacerbation; E44.1 Mild protein-calorie malnutrition; E87.3 Alkalosis; L03.115 Cellulitis of right lower limb; L03.116 Cellulitis of left lower limb; D68.69 Other thrombophilia; N17.9 Acute kidney failure, unspecified; J44.0 Chronic obstructive pulmonary disease with (acute) lower respiratory infection; I42.9 Cardiomyopathy, unspecified; J20.9 Acute bronchitis, unspecified; E87.5 Hyperkalemia; E11.9 Type 2 diabetes mellitus without complications; E66.01 Morbid (severe) obesity due to excess calories; E78.5 Hyperlipidemia, unspecified; E88.09 Other disorders of plasma-protein metabolism, not elsewhere classified; Z79.82 Long term (current) use of aspirin; Z79.84 Long term (current) use of oral hypoglycemic drugs; Z86.73 Personal history of transient ischemic attack (TIA), and cerebral infarction without residual deficits; Z87.891 Personal history of nicotine dependence; Z86.16 Personal history of COVID-19; Z79.899 Other long term (current) drug therapy; Z89.422 Acquired absence of other left toe(s); Z95.1 Presence of aortocoronary bypass graft; Z99.81 Dependence on supplemental oxygen; R53.1 Weakness; Z68.33 Body mass index [BMI] 33.0-33.9, adult; Z71.3 Dietary counseling and surveillance; I25.10 Atherosclerotic heart disease of native coronary artery without angina pectoris; Z79.02 Long term (current) use of antithrombotics/antiplatelets; Z20.822 Contact with and (suspected) exposure to COVID-19
CPT/HCPCS: 36415; 71045-TC; 80048-TC; 80061-TC; 80076-TC; 82962-TC; 83735-TC; 83880; 84100-TC; 84484-TC; 85025-TC; 93307-TC; 94762-TC; 94799-TC; 97112-TC; 97116-TC; 97530-TC; G0378; J1650; J1815; J1940; J2920; J2930